=== PATIENT | female | born 1945 | race Caucasian/White ===

== ENCOUNTER 2017-01-28 09:05 | Emergency (ER) | payer MEDICARE, OTHER ==
--- NOTE | 2017-01-28 11:23 | CT ---
CT OF THE BRAIN WITHOUT CONTRAST: Date: 01/28/17 COMPARISON: None. HISTORY: Fall, hit head on foundation of her home. TECHNIQUE: Multiple contiguous axial images were obtained in a CT of the brain without contrast. FINDINGS: The brain is normal in morphology and attenuation without focal lesions or confluent areas of infarc tion. There is no evidence of hydrocephalus, intracranial hemorrhage, or extra-axial fluid collectio n. The calvarium and overlying soft tissues are unremarkable. The visualized paranasal sinuses and mast oid air cells are well aerated. IMPRESSION: No evidence of acute intracranial abnormality. POS: [facility]
== END 2017-01-28 11:10 | disposition home or self-care (01) ==
LOC: SCSER 09:05
DX: S00.93XA Contusion of unspecified part of head, initial encounter (principal); E03.9 Hypothyroidism, unspecified; G20 Parkinson's disease; Z79.899 Other long term (current) drug therapy; W18.09XA Striking against other object with subsequent fall, initial encounter
CPT/HCPCS: 70450

== ENCOUNTER 2017-02-06 16:35 | Outpatient (CLI) | payer MEDICARE, OTHER ==
--- NOTE | 2017-02-06 18:41 | RAD ---
RIGHT FOREARM TWO VIEWS: History: Patient fell one week ago, right forearm pain and injury. Comparison: None. FINDINGS: No fracture. No cortical irregularity. No periosteal reaction. IMPRESSION: No fracture. POS: [facility]
== END 2017-02-06 16:36 | disposition home or self-care (01) ==
LOC: SCSRAD 16:35
PROVIDERS: ATTEND Specialist
DX: M79.601 Pain in right arm (principal)

== ENCOUNTER 2017-03-29 13:51 | Emergency (ER) | payer MEDICARE ==
[2017-03-29 14:31] LABS: #Basophils 0.1 thou/uL (0.0-0.2); #Eosinphils 0.1 thou/uL (0.0-0.7); #Lymphocytes 2.4 thou/uL (1.20-3.40); #Monocytes 0.4 thou/uL (0.11-0.59); %Basophils 0.7 % (0.0-1.0); %Eosinophils 1.6 % (0.0-10.0); %Monocytes 5.5 % (0.0-10.0); Hematocrit 35.6 % (36.0-47.0); Mean Platelet Volume 7.5 fL (7.4-10.4); Red Blood Cell (RBC) Count 3.67 mill/uL (4.20-5.40)
[2017-03-29 14:46] LABS: ALT (SGPT) 8 U/L (8-55); AST (SGOT) 17 U/L (5-34); Alkaline Phosphatase 66 U/L (40-150); Anion Gap 14 mmol/L (10-20); BUN (Urea Nitrogen) 18 mg/dL (9.8-20.1); Bilirubin, Total 0.4 mg/dL (0.2-1.2); Calc. Creatinine Clearance 0 mL/min (70-130); Calcium 9.4 mg/dL (7.8-10.44); Carbon Dioxide 23 mmol/L (23-31); Chloride 107 mmol/L (98-107); Estimated GFR-MDRD 68; Globulin 2.7 g/dL (2.4-3.5); Protein, Total 6.7 g/dL (6.0-8.3)
--- NOTE | 2017-03-29 15:13 | RAD ---
SINGLE VIEW OF THE CHEST: Comparison: 09-01-14 History: Lower abdominal pain for 2-3 days. Cough. FINDINGS: Single view of the chest shows a normal sized cardiomediastinal silhouette. There is no evidence of c onsolidation, mass, or pleural effusion. The bones are unremarkable. IMPRESSION: No evidence of acute cardiopulmonary disease. POS: [facility]
--- NOTE | 2017-03-29 15:43 | CT ---
CT ABDOMEN AND PELVIS WITH IV CONTRAST: Date: 03-29-17 History: Left lower quadrant abdominal pain and productive cough. Abdominal pain radiates to the left flank. Comparison: 06-26-13 FINDINGS: Minimal bibasilar atelectasis is present. Vascular calcifications are again seen in the abdominal aorta and in the iliac arteries. Post cholecystectomy changes are again present. The spleen, pancreas, bilateral adrenal glands, kidneys, and urinary bladder demonstrate a normal CT appearance. There is mild nonspecific prominence of the right ureter without hydronephrosis. No urete ral calculus is visualized. Pessary device is seen within the vagina. There is calcification seen in the right aspect of the uter us which may represent a tiny calcified uterine fibroid. There is colonic diverticulosis without CT evidence of diverticulitis. The appendix is normal in caliber. There has been no interval change from the prior CT of the abdomen from 2013. IMPRESSION: 1. No acute findings are seen in the abdomen or pelvis. 2. Colonic diverticulosis. 3. Post cholecystectomy changes. 4. Tiny fat containing umbilical hernia. 5. Small duodenal diverticulum. POS: [facility]
[2017-03-29 16:07] LABS: Bilirubin Negative (Negative); Blood, Urine Negative (Negative); Glucose, Urine (Dipstick) Negative (Negative); Ketone, Urine Negative (Negative); Nitrite Negative (Negative); Protein, Urine (Dipstick) Negative (Neg-Trace); Urobilinogen 0.2 mg/dL (0.2-1.0)
[2017-03-29 16:10] LABS: Bacteria/HPF 1+ HPF (None Seen); RBC/HPF None Seen HPF (0-3)
== END 2017-03-29 16:43 | disposition home or self-care (01) ==
LOC: SCSER 13:51
DX: R10.32 Left lower quadrant pain (principal); G20 Parkinson's disease; E03.9 Hypothyroidism, unspecified; Z79.899 Other long term (current) drug therapy
CPT/HCPCS: 71010; 74177; 80053; 81003; 81015; 85025; 87077; 87086

== ENCOUNTER 2017-04-20 09:53 | Outpatient (CLI) | payer MEDICARE, OTHER ==
--- NOTE | 2017-04-25 09:26 | MMO ---
BILATERAL SCREENING MAMMOGRAMS: Date: 04/20/17 HISTORY: 71-year-old female patient presenting for screening mammography. COMPARISON: 04/07/16, 04/06/15, 04/04/14, and 04/03/13. This patient's mammogram was interpreted with the assistance of computer-aided detection. FINDINGS: Scattered fibroglandular densities are seen in each breast. There are stable benign-appearing calcifi cations again noted in each breast. No dominant mass or suspicious grouping of microcalcifications ar e seen in either breast. No new areas of architectural distortion are seen. IMPRESSION: BIRADS 2: Benign Finding(s) Routine annual mammographic screening is recommended. POS: [facility]
== END 2017-04-20 09:54 | disposition home or self-care (01) ==
LOC: SCSMAMMO 09:53
PROVIDERS: ATTEND Internal Medicine
DX: Z12.31 Encounter for screening mammogram for malignant neoplasm of breast (principal)
CPT/HCPCS: 77067

== ENCOUNTER 2017-05-01 15:58 | Outpatient (CLI) | payer MEDICARE, OTHER ==
--- NOTE | 2017-05-01 16:29 | RAD ---
LEFT HIP TWO VIEWS: History: Left hip pain. FINDINGS: There is mild joint space narrowing, osteophytosis, and subchondral sclerosis. Femoral head contour i s maintained. No acute fracture, dislocation, or aggressive osseous erosions. Degenerative changes of the sacroiliac joint are also apparent. Circular object projecting over the pubic symphysis may repr esent a vaginal support device. IMPRESSION: Mild osteoarthritic changes left hip. POS: [facility]
== END 2017-05-01 15:59 | disposition home or self-care (01) ==
LOC: SCSRAD 15:58
PROVIDERS: ATTEND Internal Medicine
DX: M25.552 Pain in left hip (principal); M16.12 Unilateral primary osteoarthritis, left hip

== ENCOUNTER 2017-11-30 11:28 | Inpatient (IN) | payer MEDICARE, OTHER ==
[2017-11-30 11:53] LABS: Red Blood Cell (RBC) Count 3.92 mill/uL (4.20-5.40); White Blood Cell (WBC) Count 8.8 thou/uL (4.8-10.8)
[2017-11-30 11:54] LABS: #Eosinphils 0.1 thou/uL (0.0-0.7); #Lymphocytes 2.4 thou/uL (1.20-3.40); #Monocytes 0.6 thou/uL (0.11-0.59); #Neutrophils 5.7 thou/uL (1.40-6.50); %Basophils 0.4 % (0.0-1.0); %Lymphocytes 27.2 % (21.0-51.0); %Monocytes 6.6 % (0.0-10.0); %Neutrophils 64.7 % (42.0-75.0); Mean Corpuscular HGB CONC 33.5 g/dL (32.0-36.0); Mean Corpuscular Hemoglobin 33.1 pg (27.0-31.0); Mean Corpuscular Volume 98.8 fL (78.0-98.0); Mean Platelet Volume 7.9 fL (7.4-10.4); Platelet Count 209 thou/uL (130-400); RBC Distribution Width 11.4 % (11.5-14.5)
[2017-11-30] MEDS ORDERED: Midazolam HCl 5 mg/ml Vial ONE (12:16)
[2017-11-30 12:24] LABS: CKMB 3.3 ng/mL (0-6.6); Troponin I 0.012 ng/mL (< 0.028)
[2017-11-30 12:29] LABS: ALT (SGPT) Less than 7 U/L (8-55); AST (SGOT) 17 U/L (5-34); Albumin 4.2 g/dL (3.4-4.8); Alkaline Phosphatase 81 U/L (40-150); Anion Gap 13 mmol/L (10-20); BUN (Urea Nitrogen) 25 mg/dL (9.8-20.1); Bilirubin, Total 0.7 mg/dL (0.2-1.2); CK (CPK) 176 U/L (29-168); Calc. Creatinine Clearance 0 mL/min (70-130); Calcium 9.8 mg/dL (7.8-10.44); Carbon Dioxide 24 mmol/L (23-31); Chloride 105 mmol/L (98-107); Estimated GFR-MDRD 32; Globulin 2.8 g/dL (2.4-3.5); Glucose 111 mg/dL (83-110); Potassium 4.3 mmol/L (3.5-5.1); Sodium 138 mmol/L (136-145)
--- NOTE | 2017-11-30 14:30 | RAD ---
CHEST ONE VIEW: History: Chest pain. Comparison: 03-29-17 FINDINGS: Cardiac silhouette is magnified by projection. Pulmonary vasculature unremarkable. Linear atelectasis right midlung. No lobar consolidation or evidence of pneumothorax. Defibrillator patch overlies the right chest. IMPRESSION: No active cardiopulmonary abnormalities are demonstrated. POS: [facility]
[2017-11-30] MEDS ORDERED: Acetaminophen 325 MG TAB PO PRN (14:42)
[2017-11-30] MEDS ORDERED: Bisacodyl 5 MG TAB PO PRN (14:42)
[2017-11-30] MEDS ORDERED: Acetaminophen 650 MG Suppository PR PRN (14:42)
--- NOTE | 2017-11-30 15:23 | HP ---
PRIMARY CARE PROVIDER: Virginia Carranza M.D. CHIEF COMPLAINT: Chest pain. HISTORY OF PRESENT ILLNESS: Ms. Ma is a pleasant 72-year-old lady who was seen at [facility] on 11/30/2017. She was sent to the emergency room from her reporting developer's [facility]. She has a history of supraventricular tachycardia. She had ablation in 08/2014. She was reportedly doing well until about 5 days ago. About 5 days ago, she started having high heart rate. At the [facility] time, she was not eating or drinking well. She contacted her reporting developer's office, Dr. Castañeda and w as seen at Cardiology office 2 days ago. She was given a prescription for digoxin 0.25 mg q.6 hours x4 doses, then 0.125 mg daily. She finished the 0.25 mg doses yesterday evening and started 0.125 mg dose today. She reportedly had nausea and shortness of breath. She was seen at the Cardiology offi ce today and electrocardiogram was done. She was sent to the emergency room because she was in supra ventricular tachycardia. Please note that at this point in time, patient herself is unable to provide any history, since she r eceived versed for cardioversion. REVIEW OF SYSTEMS: Could not be completed secondary to patient's lethargic status. PAST MEDICAL HISTORY: Parkinson's disease, osteoporosis, hypothyroidism, supraventricular tachycardi a. PAST SURGICAL HISTORY: Cholecystectomy, tonsillectomy, spinal surgery, intercostal nerve block, kyph oplasty, cardiac ablation. SOCIAL HISTORY: No history of tobacco use, alcohol use or recreational drug use. FAMILY HISTORY: Myocardial infarctions in her father and coronary artery bypass graft in her mother. CODE STATUS: I discussed her code status. She is FULL CODE. Her is the surrogate decision maker. ALLERGIES: SULFA. CURRENT MEDICATIONS: Carbidopa/levodopa 10/100 mg daily, Requip 1 mg 3 times a day, levothyroxine 10 0 mcg daily, Azilect 1 mg daily, Neurontin 300 mg 2 times a day, Zoloft 100 mg daily, lisinopril 5 mg daily, Vagifem gastrointestinal 25 mcg daily, Prolia 60 units subcutaneously twice yearly, Amitiza 8 mcg as needed, vitamin D3 2000 units 2 times a day, magnesium 100 mg daily, Coenzyme Q10 at 10 mg da george, digoxin 125 mcg daily. PHYSICAL EXAMINATION: GENERAL: On examination, Ms. Ma is sleepy, but arousable, not in acute distress. VITAL SIGNS: Blood pressure is 105/44, pulse 66, respiratory rate 18, and oxygen saturation 98% on r oom air. She is afebrile. EYES: No scleral icterus. No conjunctival pallor. ENT: Dry mucosal membranes, no oropharyngeal erythema or exudates. NECK: Supple, nontender, trachea is midline. RESPIRATORY: Accessory muscles of breathing are not active. Chest wall movements are symmetric bila terally. LUNGS: Clear to auscultation without wheeze, rhonchi or crepitations. CARDIOVASCULAR: S1 and S2 are heard, regular. Peripheral pulses palpable. No carotid bruit, no per icardial rub. ABDOMEN: Soft, nontender, bowel sounds heard, no hepatomegaly, no splenomegaly. NEUROLOGIC: Full neurologic exam not possible secondary to the patient's noncooperation. There is n o facial droop. Deep tendon reflexes are 2+. SKIN: No rashes or subcutaneous nodules. MUSCULOSKELETAL: The patient is moving all four extremities. LYMPHATIC: No cervical lymphadenopathy. PSYCHIATRIC: Normal mood, normal affect, unable to assess orientation to person, place or time. IMAGING DATA AND LABORATORY DATA: Ms. Ma's labs and investigations were reviewed. I reviewed h er electrocardiogram sent from her reporting developer's office showing supraventricular tachycardia, no ST changes to suggest acute coronary syndrome. I also reviewed electrocardiograms after cardioversion, showing normal sinus rhythm, no ST changes to suggest an acute coronary syndrome, i.e. also reviewed her chest x-ray, which does not show any pulmonary infiltrates. She has an unremarkable CBC, normal electrolytes, elevated blood urea nitrogen of 25, elevated creatinine of 1.58, unremarkable liver pro file, elevated creatinine kinase of 136 and elevated BNP of 205.9, Troponin I is normal. ASSESSMENT AND PLAN: Ms. Ma is a pleasant 72-year-old lady who was seen at [facility] on 11/30/2017. Her problem list includes: 1. Supraventricular tachycardia: She presented to the emergency room with supraventricular tachycar sylvain. She has been electrically cardioverted by emergency room physician. She is being admitted to [facility] for further management. She will be admitted to the [facility], given her low blood pressure i n the emergency room. Her family members report that her blood pressure is usually lower on baseline . We will consult Cardiology and Electrophysiology Services for help with management. 2. Dehydration: The patient is clinically dehydrated. We will provide intravenous fluids and obser ve. 3. Acute kidney injury: Likely secondary to dehydration. We will provide intravenous fluids and re check creatinine and electrolytes. 4. Parkinson's disease. We will continue home medications once clarified. 5. Hypothyroidism: Continue Synthroid. Check TSH level. 6. Hypertension: The patient is currently hypotensive. Hold antihypertensives until blood pressure improves. Many thanks for allowing me to participate in your patient's care. Please feel free to contact me wi th any questions or concerns. LEVEL OF RISK: High. LEVEL OF COMPLEXITY: High.
[2017-11-30] MEDS ORDERED: Lubiprostone 8 MCG CAP PO SCH (17:30)
[2017-11-30] MEDS ORDERED: DENOSUMAB SQ SCH (17:30)
[2017-11-30] MEDS: Sodium Chloride 0.9% 1,000 ML IV SCH (18:01)
[2017-11-30 18:22] VITALS: BMI 33.4
[2017-11-30] MEDS: Gabapentin 300 MG CAP PO SCH (20:26)
[2017-11-30] MEDS: rOPINIRole HCl 1 MG TAB PO SCH (20:26)
[2017-11-30] MEDS ORDERED: Prevnar 13-Val Conj/PF 0.5 ML SYRINGE IM ONE (21:00)
[2017-11-30] MEDS ORDERED: CARBIDOPA PO SCH (21:00)
[2017-11-30] MEDS ORDERED: LEVODOPA PO SCH (21:00)
--- NOTE | 2017-12-01 00:36 | CON ---
DATE OF CONSULTATION: 11/30/2017 REASON FOR CONSULTATION: SVT. PRIMARY MEDICAL LABORATORY TECHNICAL OFFICER: Ashlie Castañeda M.D. HISTORY OF PRESENT ILLNESS: Ms. Ma is a very pleasant 72-year-old white female, who comes to the hospital for SVT. She was actually seen in the office by Dr. Castañeda' Nurse Practitioner and she was found to be in SVT with hypotension , blood pressure in the 60s/40s, so she was transferred immediately to the ER where she received a single cardioversion, successfully converting her from SVT down to sinus rhythm. She did well. After that, she did have an episode of hypotension transiently and is back to normal now. She denies any chest pain, tightness, pressure. She has a history of SVT with AVNRT ablation [place] [address] Ma. PAST MEDICAL HISTORY: 1. Hypertension. 2. Hyperlipidemia. 3. Hypothyroidism. 4. Osteoarthritis. 5. Parkinson disease, on carbidopa/levodopa pump. 6. Stress fractures. PAST SURGICAL HISTORY: 1. Tonsillectomy. 2. Left cataract removal. 3. Cholecystectomy. OUTPATIENT MEDICATIONS: Include: 1. Carbidopa/levodopa pump. 2. Requip. 3. Levothyroxine 100 mcg a day. 4. Azilect 1 mg a day. 5. Neurontin 300 mg twice a day. 6. Zoloft 100 mg daily. 7. Lisinopril 5 mg a day. 8. Vagifem. 9. Prolia. 10. Amitiza. 11. Vitamin D3. 12. Magnesium 100 mg a day. 13. CoQ10. 14. Digoxin 125 mcg a day. ALLERGIES: No known drug allergies. SOCIAL HISTORY: Noncontributory. FAMILY HISTORY: Positive for coronary artery disease in brother and father. REVIEW OF SYSTEMS: A 12-point review of systems was done and is all negative unless stated in the history of present illness. She has got her movement disorder, which is followed by a neurologist in [place]. PHYSICAL EXAMINATION: VITAL SIGNS: Temperature 98.2, pulse 62, respiratory rate 18, satting 98% on 2 liters nasal cannula, blood pressure 128/60. GENERAL: Awake, alert, oriented x3, in no distress. HEENT: Normocephalic, atraumatic. NECK: Supple. LUNGS: Clear. CARDIOVASCULAR: S1, S2. No S3 or S4. ABDOMEN: Soft with positive bowel sounds. EXTREMITIES: No edema. SKIN: Warm and dry. LABORATORY DATA: Laboratory work was reviewed. CBC is unremarkable. Chemistry is unremarkable. BUN of 25, creatinine 1.58, GFR of 32. Her creatinine is a little bit under baseline, most likely related to hypotension. TSH was 5.3, BNP was 205, CK-MB and troponin are normal. ASSESSMENT: 1. Supraventricular tachycardia: Status post cardioversion, doing better now. 2. High TSH. We would recommend getting a free T3, free T4. PLAN: 1. Continue digoxin. No beta sesar given borderline low blood pressure. 2. We will get EP consultation and she may be interested in a repeat ablation. This will most likely happen as an outpatient. Thank you for letting us to participate in the care of your patient. We will follow. [facility]
--- NOTE | 2017-12-01 02:07 | CON ---
DATE OF CONSULTATION: 11/30/2017 CONSULTING PHYSICIAN: Paul Cintron MD REQUESTING PHYSICIAN: Gee Gurrola MD REASON FOR CONSULTATION: Acute kidney injury. IMPRESSION: Acute kidney injury. This is likely hemodynamically mediated in the context of poor elsi al perfusion due to cardiac arrhythmia, compounded by prerenal state and beware of intravascular depl etion. PLAN: 1. IV fluid resuscitation. 2. Cardiac stabilization. HISTORY OF PRESENT ILLNESS: History is that of a 72-year-old female patient who presented with chest pain. Patient does have history of supraventricular tachycardia. Patient did come over to the ER f rom her medical office assistant instructor office. On presentation, the patient was noted to have elevated creatinine, as a result, renal consultation has been requested. PAST MEDICAL HISTORY: Significant for Parkinson disease, osteoporosis, hypothyroidism, supraventricu lar tachycardia. REVIEW OF SYSTEMS: Highly limited given the clinical condition of this patient. SOCIAL HISTORY: No alcohol, no tobacco, no illicit drug use. FAMILY HISTORY: Significant for heart disease. PHYSICAL EXAMINATION: GENERAL: The patient is noted to be somewhat lethargic though arousable, noted with the following vi sharla signs. VITAL SIGNS: Respiratory rate of 18, blood pressure 104/55, afebrile. O2 sat 98%. HEENT: Unremarkable except with dry oral mucosa. NECK: Supple. No conjunctival injection or icterus. CARDIOVASCULAR SYSTEM: First and second heart sounds were heard. RESPIRATORY SYSTEM: Clear to auscultation. DIGESTIVE SYSTEM: Revealed a benign abdomen. EXTREMITIES: No peripheral edema. SKIN: No new gross rash. LYMPHATICS: No peripheral lymphadenopathy. SUMMARY: A 72-year-old female patient who presented here with chest pain noted with supraventricular tachycardia as well as a history of poor p.o. intake. Thank you for this consultation. We will follow with you.
[2017-12-01] MEDS: Sodium Chloride 0.9% 1,000 ML IV SCH (03:31)
[2017-12-01] MEDS ORDERED: Levothyroxine Sodium 100 MCG TAB PO SCH (06:00)
[2017-12-01 06:15] LABS: #Basophils 0.1 thou/uL (0.0-0.2); #Eosinphils 0.2 thou/uL (0.0-0.7); #Lymphocytes 2.5 thou/uL (1.20-3.40); #Monocytes 0.4 thou/uL (0.11-0.59); #Neutrophils 3.3 thou/uL (1.40-6.50); %Basophils 1.1 % (0.0-1.0); %Eosinophils 2.7 % (0.0-10.0); %Lymphocytes 38.7 % (21.0-51.0); %Monocytes 6.1 % (0.0-10.0); %Neutrophils 51.5 % (42.0-75.0); Hemoglobin 12.8 g/dL (12.0-16.0); Mean Corpuscular HGB CONC 34.3 g/dL (32.0-36.0); Mean Corpuscular Hemoglobin 34.2 pg (27.0-31.0); Mean Corpuscular Volume 99.6 fL (78.0-98.0); Mean Platelet Volume 7.8 fL (7.4-10.4); Platelet Count 196 thou/uL (130-400); RBC Distribution Width 11.5 % (11.5-14.5); Red Blood Cell (RBC) Count 3.73 mill/uL (4.20-5.40); White Blood Cell (WBC) Count 6.5 thou/uL (4.8-10.8)
[2017-12-01 06:18] LABS: Anion Gap 14 mmol/L (10-20); BUN (Urea Nitrogen) 23 mg/dL (9.8-20.1); Calc. Creatinine Clearance 56 mL/min (70-130); Calcium 10.2 mg/dL (7.8-10.44); Carbon Dioxide 23 mmol/L (23-31); Chloride 108 mmol/L (98-107); Estimated GFR-MDRD 49; Glucose 92 mg/dL (83-110); Potassium 4.7 mmol/L (3.5-5.1); Sodium 140 mmol/L (136-145)
[2017-12-01 07:33] VITALS: BP 172/65
[2017-12-01] MEDS: Gabapentin 300 MG CAP PO SCH (08:43)
[2017-12-01] MEDS: rOPINIRole HCl 1 MG TAB PO SCH (08:46)
[2017-12-01] MEDS ORDERED: Lisinopril 5 MG TAB PO SCH (09:00)
[2017-12-01] MEDS ORDERED: Ubidecarenone 50 MG CAP PO SCH (09:00)
[2017-12-01] MEDS ORDERED: Enoxaparin Sodium 40 MG/0.4 ML SYRINGE SC SCH (09:00)
[2017-12-01] MEDS ORDERED: MAGNESIUM AMINO ACID CHELATE PO SCH (09:00)
[2017-12-01] MEDS ORDERED: Digoxin 0.125 MG TAB PO SCH (09:00)
[2017-12-01] MEDS ORDERED: Naproxen 500 MG TAB PO PRN (09:23)
[2017-12-01 11:13] VITALS: TEMP 98
[2017-12-01 11:41] LABS: Free T4 (Free Thyroxine) 1.05 ng/dL (0.70-1.48)
--- NOTE | 2017-12-01 21:01 | DIS ---
DATE OF ADMISSION: 11/30/2017 DATE OF DISCHARGE: 12/01/2017 PRIMARY CARE PROVIDER: Virginia Carranza M.D. ADMITTING DIAGNOSES: 1. Supraventricular tachycardia. 2. Acute kidney injury. 3. Dehydration. LABORATORY DATA: Elevated TSH, but normal free T4 and normal free T3. CONDITION OF PATIENT ON THE DAY OF DISCHARGE: Stable. I assessed Ms. Ma on the day of discharg e. She denies any chest pain or shortness of breath. Vital signs are stable. S1 and S2 are heard, regular. Lungs are clear to auscultation bilaterally. DISCHARGE MEDICATIONS: No change was made to her preadmission home medications as dictated in my his tory and physical note dated 11/30/2017. HOSPITAL COURSE: Ms. Ma is a pleasant 72-year-old lady who was admitted to [facility] on 11/30/2017 for supraventricular tachycardia. Please refer to my history and physica l note dated 11/30/2017 for further details. She was seen by Cardiology and Nephrology Services. Sh e received intravenous fluids. She was monitored on telemetry, and IMCU unit. She continued to be i n sinus rhythm. Her blood pressure also improved. She is being discharged home in a stable conditio n. She is advised to follow up with her primary care provider as well as with project finance analyst. On the day of discharge, she has sodium 140, potassium 4.7, creatinine 1.09, blood urea nitrogen 23, TSH elevated at 5.36, but free T3 and free T4 normal at 2.33 and 1.05 respectively, white count 6,500 , hemoglobin 12.8, and platelet count 196,000. Many thanks for allowing me to participate in your patient's care. Please feel free to contact me wi th any questions or concerns. DISCHARGE DESTINATION: Home. TOTAL AMOUNT OF TIME SPENT COORDINATING THIS DISCHARGE: 31 minutes.
[2017-12-07] MEDS ORDERED: ESTRADIOL VAG SCH (09:00)
--- NOTE | 2017-12-09 11:21 | EKG ---
Test Reason : TACHYCARDIA Blood Pressure : / mmHG Vent. Rate : 124 BPM Atrial Rate : 110 BPM P-R Int : 000 ms QRS Dur : 062 ms QT Int : 312 ms P-R-T Axes : 000 -03 077 degrees QTc Int : 448 ms Accelerated Junctional rhythm Low voltage QRS No STEMI Abnormal ECG Confirmed by VALERIE NEWMAN DO ([id number]), science editor GALI SCHROEDER ([id number]) on 12/09/2017 11:21:22 AM Referred By: Confirmed By:VALERIE NEWMAN DO
== END 2017-12-01 12:35 | disposition home or self-care (01) | DRG 309 ==
LOC: ERS 11:28 → IMCU/EMU 16:38
PROVIDERS: ADMIT Internal Medicine; ATTEND Internal Medicine
DX: I47.1 Supraventricular tachycardia (principal); N17.9 Acute kidney failure, unspecified; G20 Parkinson's disease; M81.0 Age-related osteoporosis without current pathological fracture; E03.9 Hypothyroidism, unspecified; E86.0 Dehydration; I10 Essential (primary) hypertension; I95.9 Hypotension, unspecified; E78.5 Hyperlipidemia, unspecified; M19.90 Unspecified osteoarthritis, unspecified site; Z92.29 Personal history of other drug therapy
CPT/HCPCS: 36415; 71045; 80048; 80053; 80061; 82550; 82553; 83880; 84439; 84443; 84481; 84484; 85025; 93005; 96361; 96374; J1650; J2250

== ENCOUNTER 2018-01-02 11:32 | Day surgery (SDC) | payer MEDICARE ==
[2018-01-01 13:08] VITALS: BMI 32.2
[2018-01-02] MEDS ORDERED: Lidocaine 1% (PF) 30 ML VIAL ONE (12:27)
[2018-01-02] MEDS ORDERED: Heparin 10,000 UNITS/1 ML VIAL ONE (12:29)
[2018-01-02 13:01] LABS: PTT 29.1 SEC (22.9-36.1); Prothrombin Time 13.7 SEC (12.0-14.7)
[2018-01-02 13:06] LABS: #Basophils 0.1 thou/uL (0.0-0.2); #Eosinphils 0.1 thou/uL (0.0-0.7); #Lymphocytes 3.1 thou/uL (1.20-3.40); #Monocytes 0.5 thou/uL (0.11-0.59); #Neutrophils 4.3 thou/uL (1.40-6.50); %Basophils 0.7 % (0.0-1.0); %Eosinophils 1.5 % (0.0-10.0); %Lymphocytes 37.8 % (21.0-51.0); %Monocytes 6.5 % (0.0-10.0); %Neutrophils 53.5 % (42.0-75.0); Hemoglobin 13.7 g/dL (12.0-16.0); Mean Corpuscular HGB CONC 34.4 g/dL (32.0-36.0); Mean Corpuscular Hemoglobin 33.7 pg (27.0-31.0); Mean Corpuscular Volume 97.9 fL (78.0-98.0); Mean Platelet Volume 8.2 fL (7.4-10.4); Platelet Count 207 thou/uL (130-400); RBC Distribution Width 11.4 % (11.5-14.5); Red Blood Cell (RBC) Count 4.07 mill/uL (4.20-5.40); White Blood Cell (WBC) Count 8.1 thou/uL (4.8-10.8)
[2018-01-02 13:09] LABS: Anion Gap 13 mmol/L (10-20); BUN (Urea Nitrogen) 22 mg/dL (9.8-20.1); Calc. Creatinine Clearance 62 mL/min (70-130); Calcium 9.9 mg/dL (7.8-10.44); Carbon Dioxide 24 mmol/L (23-31); Chloride 105 mmol/L (98-107); Estimated GFR-MDRD 58; Glucose 97 mg/dL (83-110); Potassium 4.5 mmol/L (3.5-5.1); Sodium 137 mmol/L (136-145)
[2018-01-02] MEDS ORDERED: Propofol 500 MG/50 ML VIAL ONE (13:24)
[2018-01-02] MEDS ORDERED: Fentanyl 100 MCG/2 ML VIAL ONE ×2 (14:02→16:08)
[2018-01-02] MEDS ORDERED: PROPOFOL 200 MG/20 ML VIAL ONE (14:18)
[2018-01-02] MEDS ORDERED: PROPOFOL 0 ML ONE (14:28)
[2018-01-02] MEDS ORDERED: Isoproterenol 0.2 MG/1 ML AMP ONE (14:39)
[2018-01-02] MEDS ORDERED: PROPOFOL 40 ML ONE (15:07)
--- NOTE | 2018-01-03 09:44 | OP ---
DATE OF SERVICE: 01/02/2018 ELECTROPHYSIOLOGY STUDY AND RADIOFREQUENCY ABLATION REPORT REFERRING PHYSICIAN: Ashlie Castañeda M.D. Mrs. Ma is a 72-year-old female with prior history of Parkinson's, hypertension who presented with a prior SVT with slow pathway modification back in 2014, but now with recurrent SVT is noted. Here for a repeat EP study and radiofrequency ablation. PROCEDURE: The patient received propofol by Anesthesia specialist. After adequate level of sedation achieved, the left and right femoral veins were prepped, draped and anesthetized using subcutaneous lidocaine and a left femoral vein was accessed under ultrasound guidance and two short sheath was introduced. A octapolar catheter was advanced to the right atrium, right ventricular His bundle and CS position. Pacing, mapping and recording was performed in each location. With catheter manipulation, a narrow complex SVT were noted with a cycle length of 510 milliseconds. The tachycardia had a short VA timing of 100 milliseconds are documented. This tachycardia was easily inducible also with extra stimuli provocation. Ventricular overdrive pacing demonstrated ZAYNAB response. With double extrastimuli, we were able to demonstrate presence of slow pathway. Ventricular overdrive pacing did demonstrate central retrograde VA conduction. The following numerical findings were noted. Baseline cycle length 60 milliseconds sinus rhythm, HI 165, QRS 56, QT 390, AH 120, HV 58 milliseconds. The sinus node recovery time was 1171, corrected 310 milliseconds. AV Wenckebach cycle length 370 milliseconds, retrograde Wenckebach cycle length was 380 milliseconds. AV alphonse ERP was 600/380 milliseconds. Again, with 600/380/340 milliseconds. Access to my dual AV alphonse physiology was demonstrated and this sequence was induced tachycardia. Following that, through a right femoral venous access, a standard 4 mm ablation catheter was advanced to the right atrium. 3D map of the right atrium was obtained delineating the His bundle and CS position. Following that, the slow pathway was located and ablation was performed in the slow pathway with close attention to the avoidance of AV block. Total of 3 minutes of ablation delivered in this area. These ablation lesions did eliminate inducibility of AV alphonse reentry tachycardia. Following that isuprel was initiated. With isuprel, we were initially not able to re-induce tachycardia, but then with burst atrial pacing, catheter manipulation and other recurrence were noted and repeat ablation of slow pathway was performed. Eventually no recurrence of the arrhythmia is seen. CONCLUSION: 1. 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 2. Normal sinus alphonse and AV alphonse function pre and post-ablation. [facility]
--- NOTE | 2018-01-07 16:45 | EKG ---
Test Reason : PREOP Blood Pressure : / mmHG Vent. Rate : 071 BPM Atrial Rate : 071 BPM P-R Int : 160 ms QRS Dur : 078 ms QT Int : 374 ms P-R-T Axes : -04 000 056 degrees QTc Int : 406 ms Normal sinus rhythm Nonspecific T wave abnormality Abnormal ECG When compared with ECG of 30-NOV-2017 12:32, (Unconfirmed) No significant change was found Confirmed by PARVIZ LIAO (2) on 01/07/2018 4:44:57 PM Referred By: BRANDON Confirmed By:PARVIZ LIAO
--- NOTE | 2018-01-07 16:52 | EKG ---
Test Reason : Blood Pressure : / mmHG Vent. Rate : 072 BPM Atrial Rate : 072 BPM P-R Int : 140 ms QRS Dur : 084 ms QT Int : 404 ms P-R-T Axes : 018 020 054 degrees QTc Int : 442 ms Normal sinus rhythm Normal ECG When compared with ECG of 02-JAN-2018 12:44, (Unconfirmed) No significant change was found Confirmed by PARVIZ LIAO (2) on 01/07/2018 4:52:22 PM Referred By: BRANDON Confirmed By:PARVIZ LIAO
== END 2018-01-02 19:20 | disposition home or self-care (01) ==
LOC: CCL 11:32
PROVIDERS: ATTEND Internal Medicine Cardiovascular Disease
PROC: 4A023FZ Measurement of Cardiac Rhythm, Percutaneous Approach (ICD-10-PCS; principal; 2018-01-02)
PROC: 02583ZZ Destruction of Conduction Mechanism, Percutaneous Approach (ICD-10-PCS; 2018-01-02)
PROC: 02K83ZZ Map Conduction Mechanism, Percutaneous Approach (ICD-10-PCS; 2018-01-02)
DX: I47.1 Supraventricular tachycardia (principal); G20 Parkinson's disease; I10 Essential (primary) hypertension; Z79.899 Other long term (current) drug therapy; Z88.2 Allergy status to sulfonamides; Z91.013 Allergy to seafood
CPT/HCPCS: 76942; 80048; 85025; 85610; 85730; 93613; 93623; 93653; 96374; C1730 ×2; C1769; 93005; 93010; J1644; J2001; J2704; J3010

== ENCOUNTER 2018-04-23 07:47 | Outpatient (CLI) | payer MEDICARE ==
--- NOTE | 2018-04-23 12:44 | BD ---
BONE DENSITOMETRY: INDICATION: A 72-year-old female for postmenopausal osteoporosis screening. FINDINGS: Lumbar Spine: BMD (g/cm2) L1 1.076 T-Score: 0.8 L2 1.065 T-Score: 0.3 L3 0.979 T-Score: -1.0 L4 1.022 T-Score: -0.4 L1-L4 1.033 T-Score: -0.1 Femoral Neck: 0.699 T-Score: -1.3 Total Femur: 0.974 T-Score: 0.3 Impression: 1. Bone mineral density of the femoral neck indicates osteopenia. 2. Bone mineral density of the lumbar spine within normal range. POS: [facility]
== END 2018-04-23 07:48 | disposition home or self-care (01) ==
LOC: BICMAMMO 07:47
PROVIDERS: ATTEND Internal Medicine
DX: Z12.31 Encounter for screening mammogram for malignant neoplasm of breast (principal); M81.0 Age-related osteoporosis without current pathological fracture; M85.859 Other specified disorders of bone density and structure, unspecified thigh; R92.1 Mammographic calcification found on diagnostic imaging of breast; Z80.3 Family history of malignant neoplasm of breast
CPT/HCPCS: 77063; 77067; 77080

== ENCOUNTER 2019-08-27 14:07 | Outpatient (CLI) | payer MEDICARE ==
--- NOTE | 2019-08-27 15:38 | CT ---
EXAM: BRAIN CT WITHOUT IV CONTRAST: 08/27/19 HISTORY: Injury, fall, struck forehead on wall with swelling. COMPARISON: 01/28/17. FINDINGS: Left frontal scalp swelling/hematoma. No focal mass or midline shift. There is some atrophy and chron ic white matter ischemic change. No mass or hemorrhage. Stable appearance from prior study. IMPRESSION: Left frontal scalp swelling/hematoma. No intracranial mass or bleed or other acute process. POS: [facility]
== END 2019-08-27 14:08 | disposition home or self-care (01) ==
LOC: SCSCT 14:07
PROVIDERS: ATTEND Internal Medicine
DX: S09.90XA Unspecified injury of head, initial encounter (principal)
CPT/HCPCS: 70450

== ENCOUNTER 2020-12-01 16:24 | Outpatient (CLI) | payer MEDICARE | END 2020-12-01 16:25 | disposition home or self-care (01) | LOC: BICRAD 16:24 | PROVIDERS: ATTEND Physician Assistant | DX: R06.02 Shortness of breath (principal); R60.0 Localized edema | CPT/HCPCS: 71046 ==

== ENCOUNTER 2021-06-09 11:23 | Outpatient (CLI) | payer MEDICARE | END 2021-06-09 11:24 | disposition home or self-care (01) | LOC: BICRAD 11:23 | PROVIDERS: ATTEND Internal Medicine | DX: R07.81 Pleurodynia (principal); M54.6 Pain in thoracic spine; M54.2 Cervicalgia; M47.812 Spondylosis without myelopathy or radiculopathy, cervical region | CPT/HCPCS: 72040; 72072 ==

== ENCOUNTER 2021-10-20 08:50 | Observation (INO) | payer MEDICARE ==
[2021-10-20] MEDS ORDERED: Senokot S 8.6-50 MG TAB PO PRN (11:11)
[2021-10-20] MEDS ORDERED: Ondansetron ODT 4 MG TAB PO PRN (11:11)
[2021-10-20] MEDS ORDERED: Bisacodyl 5 MG TAB PO PRN (11:11)
[2021-10-20 11:47] LABS: #Basophils 0.1 thou/uL (0.0-0.2); #Lymphocytes 1.7 thou/uL (1.20-3.40); #Monocytes 0.2 thou/uL (0.11-0.59); #Neutrophils 6.7 thou/uL (1.40-6.50); %Basophils 0.6 % (0.0-1.0); %Eosinophils 0.1 % (0.0-10.0); %Lymphocytes 19.6 % (21.0-51.0); %Monocytes 2.4 % (0.0-10.0); %Neutrophils 77.3 % (42.0-75.0); Hemoglobin 14.5 g/dL (12.0-16.0); Mean Corpuscular HGB CONC 32.9 g/dL (32.0-36.0); Mean Corpuscular Hemoglobin 33.7 pg (27.0-31.0); Mean Platelet Volume 7.2 fL (7.4-10.4); Platelet Count 365 thou/uL (130-400); RBC Distribution Width 11.5 % (11.5-14.5); White Blood Cell (WBC) Count 8.7 thou/uL (4.8-10.8)
[2021-10-20 11:55] VITALS: BMI 30.2
[2021-10-20 11:57] LABS: ALT (SGPT) 58 U/L (8-55); AST (SGOT) 35 U/L (5-34); Albumin 4.6 g/dL (3.4-4.8); Alkaline Phosphatase 335 U/L (40-110); Anion Gap 16 mmol/L (10-20); BUN (Urea Nitrogen) 16 mg/dL (9.8-20.1); Bilirubin, Total 0.6 mg/dL (0.2-1.2); Calc. Creatinine Clearance 68 mL/min (70-130); Carbon Dioxide 22 mmol/L (23-31); Chloride 104 mmol/L (98-107); Estimated GFR 79; Globulin 3.8 g/dL (2.4-3.5); Glucose 102 mg/dL (83-110); Potassium 4.1 mmol/L (3.5-5.1); Protein, Total 8.4 g/dL (5.8-8.1); Sodium 138 mmol/L (136-145)
[2021-10-20 13:03] LABS: SARS-CoV-2 NAA Rapid Test Not Detected (NotDetected)
[2021-10-20] MEDS ORDERED: Nitroglycerin 0.4 MG TAB (25 Tab Bottle) SL PRN (13:21)
[2021-10-20] MEDS ORDERED: HYDROcodone/Acetaminophen 10/325 mg Tablet PO PRN (13:21)
[2021-10-20] MEDS ORDERED: CARBIDOPA PER TUBE SCH (13:45)
[2021-10-20] MEDS ORDERED: LEVODOPA PER TUBE SCH (13:45)
[2021-10-20] MEDS: HYDROcodone/Acetaminophen 10/325 mg Tablet PO PRN ×2 (14:04→16:41)
[2021-10-20] MEDS: Gabapentin 400 MG CAP PO SCH ×2 (14:04→20:40)
[2021-10-20] MEDS: rOPINIRole HCl 1 MG TAB PO SCH ×2 (14:08→20:56)
[2021-10-20] MEDS ORDERED: Morphine 4 MG/ML VIAL ONE (16:14)
[2021-10-20] MEDS ORDERED: Morphine 2 MG/ML VIAL SLOW IVP PRN (16:27)
[2021-10-20] MEDS: Morphine 4 MG/ML VIAL SLOW IVP PRN ×2 (16:41→20:39)
[2021-10-21 05:54] LABS: ALT (SGPT) 9 U/L (8-55); AST (SGOT) 51 U/L (5-34); Albumin 3.7 g/dL (3.4-4.8); Alkaline Phosphatase 293 U/L (40-110); Anion Gap 15 mmol/L (10-20); BUN (Urea Nitrogen) 20 mg/dL (9.8-20.1); Bilirubin, Total 0.4 mg/dL (0.2-1.2); Calc. Creatinine Clearance 65 mL/min (70-130); Calcium 9.3 mg/dL (7.8-10.44); Carbon Dioxide 24 mmol/L (23-31); Chloride 105 mmol/L (98-107); Estimated GFR 76; Glucose 86 mg/dL (83-110); Potassium 4.4 mmol/L (3.5-5.1); Protein, Total 6.7 g/dL (5.8-8.1); Sodium 140 mmol/L (136-145)
[2021-10-21] MEDS ORDERED: Levothyroxine Sodium 112 MCG TAB PO SCH (06:00)
[2021-10-21] MEDS: HYDROcodone/Acetaminophen 10/325 mg Tablet PO PRN ×2 (06:02→09:52)
[2021-10-21] MEDS ORDERED: Cholecalciferol 1,000 UNITS (25 MCG) TAB PO SCH (09:00)
[2021-10-21] MEDS ORDERED: Floranex 1 GM Packet PO SCH (09:00)
[2021-10-21] MEDS ORDERED: Oxybutynin ER 5 MG TAB PO SCH (09:00)
[2021-10-21] MEDS ORDERED: Magnesium Oxide 250 MG TAB PO SCH (09:00)
[2021-10-21] MEDS ORDERED: Multivit, Therapeutic 1 TAB PO SCH (09:00)
[2021-10-21] MEDS ORDERED: Furosemide 20 MG TAB PO SCH (09:00)
[2021-10-21] MEDS ORDERED: Potassium Chloride 10 MEQ TAB PO SCH (09:00)
[2021-10-21] MEDS ORDERED: Calcium Carbonate 500 MG TAB PO SCH (09:00)
[2021-10-21] MEDS: Gabapentin 400 MG CAP PO SCH ×2 (09:11→15:31)
[2021-10-21] MEDS: rOPINIRole HCl 1 MG TAB PO SCH ×2 (09:14→15:31)
[2021-10-21] MEDS ORDERED: Sodium Chloride 0.9% 1,000 ML IV SCH (11:00)
[2021-10-21 12:25] VITALS: BP 100/64; TEMP 98.3
== END 2021-10-21 16:00 | disposition home or self-care (01) ==
LOC: SJJU 11:08 → INTOOBSV 11:08
PROVIDERS: ADMIT Specialist; ATTEND Specialist
DX: M80.08XA Age-related osteoporosis with current pathological fracture, vertebra(e), initial encounter for fracture (principal); M80.0AXA Age-related osteoporosis with current pathological fracture, other site, initial encounter for fracture; S76.211A Strain of adductor muscle, fascia and tendon of right thigh, initial encounter; G20 Parkinson's disease; E78.5 Hyperlipidemia, unspecified; E03.9 Hypothyroidism, unspecified; I10 Essential (primary) hypertension; I25.10 Atherosclerotic heart disease of native coronary artery without angina pectoris; M51.35 Other intervertebral disc degeneration, thoracolumbar region; M47.815 Spondylosis without myelopathy or radiculopathy, thoracolumbar region; M48.05 Spinal stenosis, thoracolumbar region; M51.36 Other intervertebral disc degeneration, lumbar region; M47.816 Spondylosis without myelopathy or radiculopathy, lumbar region; M48.061 Spinal stenosis, lumbar region without neurogenic claudication; M47.817 Spondylosis without myelopathy or radiculopathy, lumbosacral region; N81.10 Cystocele, unspecified; M79.89 Other specified soft tissue disorders; R74.01 Elevation of levels of liver transaminase levels; Z79.890 Hormone replacement therapy; Z79.899 Other long term (current) drug therapy; Z88.1 Allergy status to other antibiotic agents; Z88.2 Allergy status to sulfonamides; Z88.8 Allergy status to other drugs, medicaments and biological substances; Z91.013 Allergy to seafood; Z98.890 Other specified postprocedural states; Z20.822 Contact with and (suspected) exposure to COVID-19; W19.XXXA Unspecified fall, initial encounter
CPT/HCPCS: 72148; 72195; 80053 ×2; 85025; 93970; U0002; 36415; 51798; 96374; G0378; J2270; J3010; J7050

== ENCOUNTER 2021-10-28 16:27 | Inpatient (IN) | payer MEDICARE ==
[2021-10-28] MEDS ORDERED: Senokot S 8.6-50 MG TAB PO PRN (16:51)
[2021-10-28] MEDS ORDERED: Calcium Carbonate 500 MG ChewTAB PO PRN (16:51)
[2021-10-28] MEDS ORDERED: HYDROcodone/Acetaminophen 7.5/325 mg Tablet PO PRN (16:51)
[2021-10-28] MEDS ORDERED: Ondansetron ODT 4 MG TAB PO PRN (16:51)
[2021-10-28] MEDS ORDERED: Bisacodyl 5 MG TAB PO PRN (16:51)
[2021-10-28] MEDS ORDERED: Ondansetron PF 4 MG/2 ML Vial IVP PRN (16:51)
[2021-10-28] MEDS ORDERED: Bisacodyl 10 MG SUPP PR PRN (16:51)
[2021-10-28] MEDS ORDERED: Morphine 2 MG/ML VIAL SLOW IVP PRN (16:58)
[2021-10-28 17:11] LABS: #Basophils 0.1 thou/uL (0.0-0.2); #Eosinphils 0.2 thou/uL (0.0-0.7); #Lymphocytes 2.8 thou/uL (1.20-3.40); #Monocytes 0.4 thou/uL (0.11-0.59); #Neutrophils 5.3 thou/uL (1.40-6.50); %Basophils 0.9 % (0.0-1.0); %Eosinophils 2.4 % (0.0-10.0); %Lymphocytes 31.9 % (21.0-51.0); %Monocytes 4.6 % (0.0-10.0); %Neutrophils 60.2 % (42.0-75.0); Hemoglobin 12.4 g/dL (12.0-16.0); Mean Corpuscular HGB CONC 32.4 g/dL (32.0-36.0); Mean Corpuscular Hemoglobin 33.8 pg (27.0-31.0); Mean Platelet Volume 7.4 fL (7.4-10.4); Platelet Count 274 thou/uL (130-400); RBC Distribution Width 11.5 % (11.5-14.5); Red Blood Cell (RBC) Count 3.68 mill/uL (4.20-5.40); White Blood Cell (WBC) Count 8.7 thou/uL (4.8-10.8)
[2021-10-28] MEDS ORDERED: Naloxone HCl 0.4 mg/ml Vial IV PRN (17:15)
[2021-10-28 17:34] LABS: ALT (SGPT) 10 U/L (8-55); AST (SGOT) 53 U/L (5-34); Albumin 4.3 g/dL (3.4-4.8); Alkaline Phosphatase 317 U/L (40-110); Anion Gap 14 mmol/L (10-20); BUN (Urea Nitrogen) 33 mg/dL (9.8-20.1); Bilirubin, Total 0.5 mg/dL (0.2-1.2); Calc. Creatinine Clearance 0 mL/min (70-130); Calcium 9.6 mg/dL (7.8-10.44); Carbon Dioxide 27 mmol/L (23-31); Chloride 100 mmol/L (98-107); Estimated GFR 46; Globulin 3.1 g/dL (2.4-3.5); Glucose 103 mg/dL (83-110); Potassium 4.2 mmol/L (3.5-5.1); Protein, Total 7.4 g/dL (5.8-8.1); Sodium 137 mmol/L (136-145)
[2021-10-28] MEDS: Morphine 4 MG/ML VIAL SLOW IVP PRN ×2 (17:56→22:32)
[2021-10-28] MEDS: Sodium Chloride 0.9% 1,000 ML IV SCH (17:56)
[2021-10-28] MEDS ORDERED: Enoxaparin Sodium 40 MG/0.4 ML SYRINGE SC SCH (18:30)
[2021-10-28 19:16] VITALS: BMI 29.9
[2021-10-28] MEDS: HYDROcodone/Acetaminophen 7.5/325 mg Tablet PO PRN (20:24)
[2021-10-29] MEDS: HYDROcodone/Acetaminophen 7.5/325 mg Tablet PO PRN ×3 (00:50→21:42)
[2021-10-29] MEDS: Morphine 4 MG/ML VIAL SLOW IVP PRN ×2 (02:36→06:13)
[2021-10-29] MEDS ORDERED: Diazepam 5 MG TAB PO SCH (06:45)
[2021-10-29] MEDS: Sodium Chloride 0.9% 1,000 ML IV SCH ×2 (08:51→21:37)
[2021-10-29] MEDS ORDERED: Diazepam 5 MG TAB PO PRN (12:04)
[2021-10-29] MEDS ORDERED: Iopamidol-370 76% 500 ML 1 ML ONE (13:45)
[2021-10-29] MEDS ORDERED: clonazePAM 0.5 MG TAB PO SCH (16:30)
[2021-10-29] MEDS: Enoxaparin Sodium 40 MG/0.4 ML SYRINGE SC SCH (21:37)
[2021-10-30] MEDS: Morphine 4 MG/ML VIAL SLOW IVP PRN ×3 (01:12→09:59)
[2021-10-30] MEDS: HYDROcodone/Acetaminophen 7.5/325 mg Tablet PO PRN ×2 (02:27→07:11)
[2021-10-30] MEDS: Sodium Chloride 0.9% 1,000 ML IV SCH ×2 (04:15→17:29)
[2021-10-30 05:15] LABS: #Eosinphils 0.2 thou/uL (0.0-0.7); #Lymphocytes 2.8 thou/uL (1.20-3.40); #Monocytes 0.5 thou/uL (0.11-0.59); #Neutrophils 5.3 thou/uL (1.40-6.50); %Basophils 0.5 % (0.0-1.0); %Eosinophils 1.8 % (0.0-10.0); %Lymphocytes 31.7 % (21.0-51.0); %Monocytes 6.2 % (0.0-10.0); %Neutrophils 59.9 % (42.0-75.0); Mean Corpuscular HGB CONC 32.6 g/dL (32.0-36.0); Mean Corpuscular Hemoglobin 33.2 pg (27.0-31.0); Mean Platelet Volume 7.7 fL (7.4-10.4); Platelet Count 262 thou/uL (130-400); RBC Distribution Width 11.5 % (11.5-14.5); Red Blood Cell (RBC) Count 3.92 mill/uL (4.20-5.40); White Blood Cell (WBC) Count 8.8 thou/uL (4.8-10.8)
[2021-10-30 05:34] LABS: Anion Gap 16 mmol/L (10-20); BUN (Urea Nitrogen) 12 mg/dL (9.8-20.1); Calc. Creatinine Clearance 75 mL/min (70-130); Calcium 9.2 mg/dL (7.8-10.44); Carbon Dioxide 23 mmol/L (23-31); Chloride 103 mmol/L (98-107); Estimated GFR 89; Glucose 107 mg/dL (83-110); Potassium 3.7 mmol/L (3.5-5.1); Sodium 138 mmol/L (136-145)
[2021-10-30 05:38] LABS: ALT (SGPT) 10 U/L (8-55); AST (SGOT) 46 U/L (5-34); Albumin 4.1 g/dL (3.4-4.8); Alkaline Phosphatase 290 U/L (40-110); Anion Gap 17 mmol/L (10-20); BUN (Urea Nitrogen) 13 mg/dL (9.8-20.1); Bilirubin, Direct 0.4 mg/dL (0.1-0.3); Bilirubin, Total 0.8 mg/dL (0.2-1.2); Calc. Creatinine Clearance 74 mL/min (70-130); Calcium 9.2 mg/dL (7.8-10.44); Carbon Dioxide 21 mmol/L (23-31); Chloride 103 mmol/L (98-107); Estimated GFR 89; Globulin 2.8 g/dL (2.4-3.5); Glucose 106 mg/dL (83-110); Potassium 3.7 mmol/L (3.5-5.1); Protein, Total 6.9 g/dL (5.8-8.1); Sodium 137 mmol/L (136-145)
[2021-10-30 05:54] LABS: HBSAg Index 0.25 S/CO (0-0.99); Hep A IgM AB Non-Reactive (NonReactive); Hep A IgM S/CO 0.18 S/CO (0-0.79); Hep B Surf Ag Non-Reactive S/CO (NonReactive); Hep C IgG Ab Non-Reactive (NonReactive); Hep C Index 0.11 S/CO (0-0.79); Hepatitis B Core IgM Abs Non-Reactive (NonReactive)
[2021-10-30] MEDS ORDERED: methylPREDNISolone Sod Succ/PF 125 MG/2 ML VIAL IVP SCH (09:00)
[2021-10-30] MEDS ORDERED: clonazePAM 0.5 MG TAB PO SCH (09:00)
[2021-10-30] MEDS: clonazePAM 0.5 MG TAB PO SCH ×2 (09:44→20:40)
[2021-10-30] MEDS ORDERED: Levothyroxine Sodium 112 MCG TAB PO SCH (10:00)
[2021-10-30 10:42] LABS: Iron 83 ug/dL (50-170); Iron Binding Capacity, Total 293 mcg/dL (265-497)
[2021-10-30] MEDS: Enoxaparin Sodium 40 MG/0.4 ML SYRINGE SC SCH (20:40)
[2021-10-30] MEDS: Melatonin 3 MG TAB PO SCH (20:41)
[2021-10-31] MEDS: HYDROcodone/Acetaminophen 7.5/325 mg Tablet PO PRN ×2 (01:48→06:38)
[2021-10-31] MEDS: Morphine 4 MG/ML VIAL SLOW IVP PRN ×4 (02:31→16:51)
[2021-10-31] MEDS: Levothyroxine Sodium 112 MCG TAB PO SCH (05:31)
[2021-10-31] MEDS: Sodium Chloride 0.9% 1,000 ML IV SCH ×2 (05:31→18:52)
[2021-10-31] MEDS ORDERED: Ketorolac Tromethamine 30 MG/ML VIAL IVP SCH (09:45)
[2021-10-31] MEDS: Folic Acid 1 MG TAB PO SCH (10:02)
[2021-10-31] MEDS: Oxybutynin ER 5 MG TAB PO SCH (10:02)
[2021-10-31] MEDS: clonazePAM 0.5 MG TAB PO SCH ×2 (10:02→21:42)
[2021-10-31] MEDS ORDERED: LEVODOPA PER TUBE SCH (11:00)
[2021-10-31] MEDS ORDERED: CARBIDOPA PER TUBE SCH (11:00)
[2021-10-31] MEDS: methylPREDNISolone 4 mg Tablet PO SCH ×3 (13:36→21:46)
[2021-10-31] MEDS: Ketorolac Tromethamine 10 MG TAB PO SCH ×2 (14:42→21:42)
[2021-10-31] MEDS ORDERED: Diazepam 10 MG/2 ML SYRINGE IVP SCH (18:15)
[2021-10-31] MEDS: Melatonin 3 MG TAB PO SCH (21:42)
[2021-10-31] MEDS: Enoxaparin Sodium 40 MG/0.4 ML SYRINGE SC SCH (21:42)
[2021-11-01] MEDS: Ketorolac Tromethamine 10 MG TAB PO SCH ×3 (05:30→22:24)
[2021-11-01] MEDS: Levothyroxine Sodium 112 MCG TAB PO SCH (05:31)
[2021-11-01] MEDS: Morphine 4 MG/ML VIAL SLOW IVP PRN ×4 (05:34→19:31)
[2021-11-01] MEDS: clonazePAM 0.5 MG TAB PO SCH ×2 (08:53→21:13)
[2021-11-01] MEDS: Oxybutynin ER 5 MG TAB PO SCH (08:53)
[2021-11-01] MEDS: methylPREDNISolone 4 mg Tablet PO SCH ×3 (08:53→18:21)
[2021-11-01] MEDS: Folic Acid 1 MG TAB PO SCH (08:54)
[2021-11-01] MEDS: HYDROcodone/Acetaminophen 7.5/325 mg Tablet PO PRN ×3 (08:54→23:53)
[2021-11-01] MEDS: Sodium Chloride 0.9% 1,000 ML IV SCH ×2 (09:17→23:52)
[2021-11-01] MEDS: hydrALAZINE 20 MG/ML VIAL SLOW IVP PRN (09:17)
[2021-11-01] MEDS: Diclofenac 1% 100 GM GEL TP SCH ×2 (13:49→22:27)
[2021-11-01] MEDS: tiZANidine HCl 4 MG TAB PO SCH ×2 (14:05→21:12)
[2021-11-01] MEDS ORDERED: methylPREDNISolone 4 mg Tablet PO SCH (21:00)
[2021-11-01] MEDS: Melatonin 3 MG TAB PO SCH (21:10)
[2021-11-01] MEDS: Enoxaparin Sodium 40 MG/0.4 ML SYRINGE SC SCH (21:13)
[2021-11-01] MEDS ORDERED: Diazepam 10 MG/2 ML SYRINGE IVP SCH (22:00)
[2021-11-02] MEDS: HYDROcodone/Acetaminophen 7.5/325 mg Tablet PO PRN ×3 (04:59→20:13)
[2021-11-02 05:03] LABS: #Lymphocytes 1.5 thou/uL (1.20-3.40); #Monocytes 0.3 thou/uL (0.11-0.59); #Neutrophils 7.4 thou/uL (1.40-6.50); %Basophils 0.1 % (0.0-1.0); %Eosinophils 0.1 % (0.0-10.0); %Monocytes 3.4 % (0.0-10.0); %Neutrophils 80.4 % (42.0-75.0); Hemoglobin 13.9 g/dL (12.0-16.0); Mean Corpuscular HGB CONC 31.6 g/dL (32.0-36.0); Mean Corpuscular Hemoglobin 33.1 pg (27.0-31.0); Mean Platelet Volume 8.1 fL (7.4-10.4); Platelet Count 229 thou/uL (130-400); RBC Distribution Width 11.6 % (11.5-14.5); Red Blood Cell (RBC) Count 4.21 mill/uL (4.20-5.40); White Blood Cell (WBC) Count 9.2 thou/uL (4.8-10.8)
[2021-11-02 05:15] LABS: ALT (SGPT) 7 U/L (8-55); AST (SGOT) 40 U/L (5-34); Albumin 4.2 g/dL (3.4-4.8); Alkaline Phosphatase 247 U/L (40-110); Anion Gap 16 mmol/L (10-20); BUN (Urea Nitrogen) 13 mg/dL (9.8-20.1); Bilirubin, Total 0.8 mg/dL (0.2-1.2); Calc. Creatinine Clearance 75 mL/min (70-130); Calcium 9.1 mg/dL (7.8-10.44); Carbon Dioxide 22 mmol/L (23-31); Chloride 102 mmol/L (98-107); Estimated GFR 89; Globulin 3.2 g/dL (2.4-3.5); Glucose 106 mg/dL (83-110); Magnesium 1.6 mg/dL (1.6-2.6); Potassium 3.3 mmol/L (3.5-5.1); Protein, Total 7.4 g/dL (5.8-8.1); Sodium 137 mmol/L (136-145)
[2021-11-02] MEDS: Levothyroxine Sodium 112 MCG TAB PO SCH (06:12)
[2021-11-02] MEDS: Ketorolac Tromethamine 10 MG TAB PO SCH (06:12)
[2021-11-02] MEDS: Diclofenac 1% 100 GM GEL TP SCH ×3 (06:20→21:23)
[2021-11-02] MEDS ORDERED: methylPREDNISolone 4 mg Tablet PO SCH (08:00)
[2021-11-02] MEDS: Folic Acid 1 MG TAB PO SCH (08:32)
[2021-11-02] MEDS: Morphine 4 MG/ML VIAL SLOW IVP PRN (08:32)
[2021-11-02] MEDS: Lidocaine 5% Patch TD SCH (08:32)
[2021-11-02] MEDS: Oxybutynin ER 5 MG TAB PO SCH (08:32)
[2021-11-02] MEDS: clonazePAM 0.5 MG TAB PO SCH ×2 (08:33→21:28)
[2021-11-02] MEDS: tiZANidine HCl 4 MG TAB PO SCH ×3 (10:06→21:23)
[2021-11-02] MEDS ORDERED: Fentanyl 100 MCG/2 ML VIAL ONE (10:57)
[2021-11-02] MEDS ORDERED: Ropivacaine 2% HCl/PF (20 MG/10 ML VIAL) ONE (11:42)
[2021-11-02] MEDS ORDERED: Lidocaine 1.5% w/Epi 1:200K 30 ML VIAL (Epid Use) ONE (11:42)
[2021-11-02] MEDS: fentaNYL Citrate/PF 500 MCG, Bupivacaine 0.75% 10 ML in Sodium Chloride 0.9% 80 ML EPIDURAL SCH (12:53)
[2021-11-02] MEDS: cefTRIAXone\\ROCEPHIN 1 GM in Sodium Chloride 0.9% 100 ML IVPB SCH (13:56)
[2021-11-02 13:59] LABS: Bacteria/HPF 3+ HPF (None Seen); Bilirubin Negative (Negative); Blood, Urine 1+ (Negative); Clarity Turbid (Clear); Glucose, Urine (Dipstick) Normal (Negative); Ketone, Urine Trace mg/dL (Negative); Leukocyte 500 Leu/uL (Negative); Nitrite Negative (Negative); Protein, Urine (Dipstick) 10 mg/dL (Neg-Trace); Specific Gravity, Urine 1.013 (1.002-1.036); Squamous Epithelial None Seen HPF (0-3); Urobilinogen Normal mg/dL (Less than 2); WBC/HPF Greater than 50 HPF (0-3)
[2021-11-02 14:02] LABS: Urine Culture Reflex Yes Yes
[2021-11-02 14:13] LABS: Hematocrit 36.8 % (34.0-46.6); RBC Folate Test Component 1367 ng/mL (>498)
[2021-11-02] MEDS ORDERED: Phenazopyridine HCl 100 MG TAB PO PRN (15:01)
[2021-11-02] MEDS ORDERED: Potassium Chloride 20 MEQ TAB PO SCH (16:30)
[2021-11-02] MEDS: Melatonin 3 MG TAB PO SCH (21:28)
[2021-11-02] MEDS: Enoxaparin Sodium 40 MG/0.4 ML SYRINGE SC SCH (21:28)
[2021-11-03] MEDS: Transdermal Patch Removal TOP SCH ×2 (00:31→20:14)
[2021-11-03] MEDS: HYDROcodone/Acetaminophen 7.5/325 mg Tablet PO PRN ×5 (00:51→22:48)
[2021-11-03] MEDS: fentaNYL Citrate/PF 500 MCG, Bupivacaine 0.75% 10 ML in Sodium Chloride 0.9% 80 ML EPIDURAL SCH (05:48)
[2021-11-03] MEDS: Diclofenac 1% 100 GM GEL TP SCH ×3 (06:08→20:15)
[2021-11-03] MEDS: Levothyroxine Sodium 112 MCG TAB PO SCH (06:08)
[2021-11-03] MEDS ORDERED: methylPREDNISolone 4 mg Tablet PO SCH (08:00)
[2021-11-03] MEDS: Oxybutynin ER 5 MG TAB PO SCH (09:14)
[2021-11-03] MEDS: Folic Acid 1 MG TAB PO SCH (09:14)
[2021-11-03] MEDS: Lidocaine 5% Patch TD SCH (09:14)
[2021-11-03] MEDS: clonazePAM 0.5 MG TAB PO SCH ×2 (09:44→20:14)
[2021-11-03] MEDS: tiZANidine HCl 4 MG TAB PO SCH ×2 (09:44→16:02)
[2021-11-03] MEDS: cefTRIAXone\\ROCEPHIN 1 GM in Sodium Chloride 0.9% 100 ML IVPB SCH (12:02)
[2021-11-03] MEDS: Melatonin 3 MG TAB PO SCH (20:14)
[2021-11-03] MEDS: Enoxaparin Sodium 40 MG/0.4 ML SYRINGE SC SCH (20:14)
[2021-11-04 04:55] LABS: #Basophils 0.1 thou/uL (0.0-0.2); #Eosinphils 0.1 thou/uL (0.0-0.7); #Lymphocytes 2.2 thou/uL (1.20-3.40); #Monocytes 0.4 thou/uL (0.11-0.59); #Neutrophils 3.9 thou/uL (1.40-6.50); %Basophils 0.8 % (0.0-1.0); %Lymphocytes 32.8 % (21.0-51.0); %Monocytes 6.5 % (0.0-10.0); %Neutrophils 57.9 % (42.0-75.0); Hemoglobin 12.3 g/dL (12.0-16.0); Mean Corpuscular HGB CONC 32.6 g/dL (32.0-36.0); Mean Corpuscular Hemoglobin 33.4 pg (27.0-31.0); Mean Platelet Volume 7.6 fL (7.4-10.4); Platelet Count 183 thou/uL (130-400); RBC Distribution Width 11.8 % (11.5-14.5); Red Blood Cell (RBC) Count 3.67 mill/uL (4.20-5.40); White Blood Cell (WBC) Count 6.7 thou/uL (4.8-10.8)
[2021-11-04 05:20] LABS: ALT (SGPT) Less than 7 U/L (8-55); AST (SGOT) 36 U/L (5-34); Albumin 3.7 g/dL (3.4-4.8); Alkaline Phosphatase 178 U/L (40-110); Anion Gap 15 mmol/L (10-20); BUN (Urea Nitrogen) 20 mg/dL (9.8-20.1); Bilirubin, Total 0.6 mg/dL (0.2-1.2); Calc. Creatinine Clearance 74 mL/min (70-130); Carbon Dioxide 21 mmol/L (23-31); Chloride 105 mmol/L (98-107); Estimated GFR 89; Globulin 2.6 g/dL (2.4-3.5); Glucose 83 mg/dL (83-110); Potassium 3.3 mmol/L (3.5-5.1); Protein, Total 6.3 g/dL (5.8-8.1); Sodium 138 mmol/L (136-145)
[2021-11-04] MEDS: Levothyroxine Sodium 112 MCG TAB PO SCH (06:11)
[2021-11-04] MEDS: Diclofenac 1% 100 GM GEL TP SCH ×3 (06:11→21:33)
[2021-11-04] MEDS: HYDROcodone/Acetaminophen 7.5/325 mg Tablet PO PRN ×2 (07:53→22:06)
[2021-11-04] MEDS ORDERED: methylPREDNISolone 4 mg Tablet PO SCH (08:00)
[2021-11-04] MEDS: Oxybutynin ER 5 MG TAB PO SCH (09:13)
[2021-11-04] MEDS: Lidocaine 5% Patch TD SCH (09:13)
[2021-11-04] MEDS: Folic Acid 1 MG TAB PO SCH (09:13)
[2021-11-04] MEDS: cefTRIAXone\\ROCEPHIN 1 GM in Sodium Chloride 0.9% 100 ML IVPB SCH (12:10)
[2021-11-04] MEDS: Potassium Chloride 20 MEQ TAB PO SCH (18:50)
[2021-11-04] MEDS: Enoxaparin Sodium 40 MG/0.4 ML SYRINGE SC SCH (21:32)
[2021-11-04] MEDS: Melatonin 3 MG TAB PO SCH (21:32)
[2021-11-04] MEDS: Transdermal Patch Removal TOP SCH (21:33)
[2021-11-04] MEDS: Morphine 4 MG/ML VIAL SLOW IVP PRN (23:41)
[2021-11-05] MEDS: Morphine 4 MG/ML VIAL SLOW IVP PRN (03:44)
[2021-11-05] MEDS: Levothyroxine Sodium 112 MCG TAB PO SCH (05:18)
[2021-11-05] MEDS: Diclofenac 1% 100 GM GEL TP SCH ×3 (05:18→21:20)
[2021-11-05] MEDS: fentaNYL Citrate/PF 500 MCG, Bupivacaine 0.75% 10 ML in Sodium Chloride 0.9% 80 ML EPIDURAL SCH ×2 (06:31→18:13)
[2021-11-05] MEDS: HYDROcodone/Acetaminophen 7.5/325 mg Tablet PO PRN ×3 (07:15→23:42)
[2021-11-05 07:30] LABS: #Eosinphils 0.2 thou/uL (0.0-0.7); #Lymphocytes 2.1 thou/uL (1.20-3.40); #Monocytes 0.4 thou/uL (0.11-0.59); #Neutrophils 4.8 thou/uL (1.40-6.50); %Basophils 0.2 % (0.0-1.0); %Eosinophils 2.6 % (0.0-10.0); %Lymphocytes 28.2 % (21.0-51.0); %Monocytes 5.2 % (0.0-10.0); %Neutrophils 63.8 % (42.0-75.0); Mean Corpuscular HGB CONC 32.2 g/dL (32.0-36.0); Mean Corpuscular Hemoglobin 33.4 pg (27.0-31.0); Mean Platelet Volume 8.1 fL (7.4-10.4); Platelet Count 220 thou/uL (130-400); RBC Distribution Width 11.8 % (11.5-14.5); White Blood Cell (WBC) Count 7.6 thou/uL (4.8-10.8)
[2021-11-05] MEDS ORDERED: methylPREDNISolone 4 mg Tablet PO SCH (08:00)
[2021-11-05 08:16] LABS: ALT (SGPT) Less than 7 U/L (8-55); AST (SGOT) 40 U/L (5-34); Albumin 3.8 g/dL (3.4-4.8); Alkaline Phosphatase 183 U/L (40-110); Anion Gap 17 mmol/L (10-20); BUN (Urea Nitrogen) 19 mg/dL (9.8-20.1); Bilirubin, Total 0.6 mg/dL (0.2-1.2); Calc. Creatinine Clearance 78 mL/min (70-130); Calcium 9.2 mg/dL (7.8-10.44); Carbon Dioxide 24 mmol/L (23-31); Chloride 103 mmol/L (98-107); Estimated GFR 90; Globulin 2.8 g/dL (2.4-3.5); Glucose 92 mg/dL (83-110); Potassium 3.5 mmol/L (3.5-5.1); Protein, Total 6.6 g/dL (5.8-8.1); Sodium 140 mmol/L (136-145)
[2021-11-05] MEDS: Potassium Chloride 20 MEQ TAB PO SCH ×2 (08:33→16:08)
[2021-11-05] MEDS: Folic Acid 1 MG TAB PO SCH (08:34)
[2021-11-05] MEDS: Oxybutynin ER 5 MG TAB PO SCH (08:34)
[2021-11-05] MEDS: Lidocaine 5% Patch TD SCH (08:36)
[2021-11-05] MEDS: cefTRIAXone\\ROCEPHIN 1 GM in Sodium Chloride 0.9% 100 ML IVPB SCH (11:53)
[2021-11-05] MEDS: Enoxaparin Sodium 40 MG/0.4 ML SYRINGE SC SCH (21:14)
[2021-11-05] MEDS: Melatonin 3 MG TAB PO SCH (21:15)
[2021-11-05] MEDS: Transdermal Patch Removal TOP SCH (21:27)
[2021-11-06] MEDS: HYDROcodone/Acetaminophen 7.5/325 mg Tablet PO PRN ×3 (04:56→15:11)
[2021-11-06 05:38] LABS: #Eosinphils 0.2 thou/uL (0.0-0.7); #Lymphocytes 2.3 thou/uL (1.20-3.40); #Monocytes 0.4 thou/uL (0.11-0.59); #Neutrophils 4.8 thou/uL (1.40-6.50); %Basophils 0.4 % (0.0-1.0); %Eosinophils 3.2 % (0.0-10.0); %Lymphocytes 29.7 % (21.0-51.0); %Neutrophils 61.7 % (42.0-75.0); Hemoglobin 12.9 g/dL (12.0-16.0); Mean Corpuscular HGB CONC 31.9 g/dL (32.0-36.0); Mean Platelet Volume 7.8 fL (7.4-10.4); Platelet Count 222 thou/uL (130-400); RBC Distribution Width 11.9 % (11.5-14.5); Red Blood Cell (RBC) Count 3.91 mill/uL (4.20-5.40); White Blood Cell (WBC) Count 7.7 thou/uL (4.8-10.8)
[2021-11-06 06:01] LABS: ALT (SGPT) Less than 7 U/L (8-55); AST (SGOT) 31 U/L (5-34); Albumin 3.9 g/dL (3.4-4.8); Alkaline Phosphatase 170 U/L (40-110); Anion Gap 18 mmol/L (10-20); BUN (Urea Nitrogen) 16 mg/dL (9.8-20.1); Bilirubin, Total 0.6 mg/dL (0.2-1.2); Calc. Creatinine Clearance 82 mL/min (70-130); Calcium 9.5 mg/dL (7.8-10.44); Carbon Dioxide 21 mmol/L (23-31); Chloride 103 mmol/L (98-107); Estimated GFR 91; Glucose 113 mg/dL (83-110); Potassium 4.2 mmol/L (3.5-5.1); Protein, Total 6.9 g/dL (5.8-8.1); Sodium 138 mmol/L (136-145)
[2021-11-06] MEDS: Diclofenac 1% 100 GM GEL TP SCH ×3 (06:05→21:46)
[2021-11-06] MEDS: Levothyroxine Sodium 112 MCG TAB PO SCH (06:06)
[2021-11-06] MEDS: fentaNYL Citrate/PF 500 MCG, Bupivacaine 0.75% 10 ML in Sodium Chloride 0.9% 80 ML EPIDURAL SCH ×2 (06:11→19:08)
[2021-11-06] MEDS: hydrALAZINE 20 MG/ML VIAL SLOW IVP PRN (06:44)
[2021-11-06] MEDS: Morphine 4 MG/ML VIAL SLOW IVP PRN ×2 (07:57→17:44)
[2021-11-06] MEDS: Oxybutynin ER 5 MG TAB PO SCH (10:47)
[2021-11-06] MEDS: Folic Acid 1 MG TAB PO SCH (10:49)
[2021-11-06] MEDS: Potassium Chloride 20 MEQ TAB PO SCH ×2 (10:49→17:42)
[2021-11-06] MEDS: Lidocaine 5% Patch TD SCH (10:51)
[2021-11-06] MEDS: cefTRIAXone\\ROCEPHIN 1 GM in Sodium Chloride 0.9% 100 ML IVPB SCH (10:57)
[2021-11-06] MEDS: Melatonin 3 MG TAB PO SCH (20:27)
[2021-11-06] MEDS: Enoxaparin Sodium 40 MG/0.4 ML SYRINGE SC SCH (20:27)
[2021-11-06] MEDS: clonazePAM 0.5 MG TAB PO SCH (20:28)
[2021-11-06] MEDS: Transdermal Patch Removal TOP SCH (21:46)
[2021-11-07] MEDS: HYDROcodone/Acetaminophen 7.5/325 mg Tablet PO PRN ×5 (00:29→20:27)
[2021-11-07] MEDS: hydrALAZINE 20 MG/ML VIAL SLOW IVP PRN (03:59)
[2021-11-07 05:39] LABS: #Basophils 0.1 thou/uL (0.0-0.2); #Eosinphils 0.3 thou/uL (0.0-0.7); #Monocytes 0.6 thou/uL (0.11-0.59); #Neutrophils 5.6 thou/uL (1.40-6.50); %Basophils 0.5 % (0.0-1.0); %Monocytes 6.4 % (0.0-10.0); %Neutrophils 59.2 % (42.0-75.0); Mean Corpuscular HGB CONC 32.5 g/dL (32.0-36.0); Mean Corpuscular Hemoglobin 33.8 pg (27.0-31.0); Platelet Count 246 thou/uL (130-400); RBC Distribution Width 12.3 % (11.5-14.5); Red Blood Cell (RBC) Count 4.14 mill/uL (4.20-5.40); White Blood Cell (WBC) Count 9.5 thou/uL (4.8-10.8)
[2021-11-07 06:01] LABS: ALT (SGPT) 9 U/L (8-55); AST (SGOT) 26 U/L (5-34); Albumin 4.2 g/dL (3.4-4.8); Alkaline Phosphatase 171 U/L (40-110); Anion Gap 16 mmol/L (10-20); BUN (Urea Nitrogen) 18 mg/dL (9.8-20.1); Bilirubin, Total 0.5 mg/dL (0.2-1.2); Calc. Creatinine Clearance 72 mL/min (70-130); Calcium 9.8 mg/dL (7.8-10.44); Carbon Dioxide 22 mmol/L (23-31); Chloride 105 mmol/L (98-107); Estimated GFR 86; Globulin 3.1 g/dL (2.4-3.5); Glucose 123 mg/dL (83-110); Potassium 4.4 mmol/L (3.5-5.1); Protein, Total 7.3 g/dL (5.8-8.1); Sodium 139 mmol/L (136-145)
[2021-11-07] MEDS: Diclofenac 1% 100 GM GEL TP SCH ×3 (06:16→20:30)
[2021-11-07] MEDS: Levothyroxine Sodium 112 MCG TAB PO SCH (06:16)
[2021-11-07] MEDS: Morphine 4 MG/ML VIAL SLOW IVP PRN (06:30)
[2021-11-07] MEDS: fentaNYL Citrate/PF 500 MCG, Bupivacaine 0.75% 10 ML in Sodium Chloride 0.9% 80 ML EPIDURAL SCH ×2 (07:17→18:22)
[2021-11-07] MEDS: Oxybutynin ER 5 MG TAB PO SCH (08:12)
[2021-11-07] MEDS: Lidocaine 5% Patch TD SCH (08:13)
[2021-11-07] MEDS: Folic Acid 1 MG TAB PO SCH (08:13)
[2021-11-07] MEDS: Potassium Chloride 20 MEQ TAB PO SCH ×2 (08:13→16:53)
[2021-11-07] MEDS: cefTRIAXone\\ROCEPHIN 1 GM in Sodium Chloride 0.9% 100 ML IVPB SCH (11:27)
[2021-11-07] MEDS: Transdermal Patch Removal TOP SCH (20:21)
[2021-11-07] MEDS: Melatonin 3 MG TAB PO SCH (20:22)
[2021-11-07] MEDS: clonazePAM 0.5 MG TAB PO SCH (20:22)
[2021-11-07] MEDS: Enoxaparin Sodium 40 MG/0.4 ML SYRINGE SC SCH (20:24)
[2021-11-08] MEDS: HYDROcodone/Acetaminophen 7.5/325 mg Tablet PO PRN ×4 (02:03→21:43)
[2021-11-08 05:43] LABS: #Basophils 0.1 thou/uL (0.0-0.2); #Eosinphils 0.3 thou/uL (0.0-0.7); #Lymphocytes 2.8 thou/uL (1.20-3.40); #Monocytes 0.5 thou/uL (0.11-0.59); #Neutrophils 4.2 thou/uL (1.40-6.50); %Eosinophils 3.6 % (0.0-10.0); %Lymphocytes 35.4 % (21.0-51.0); %Monocytes 6.9 % (0.0-10.0); %Neutrophils 53.2 % (42.0-75.0); Hemoglobin 13.7 g/dL (12.0-16.0); Mean Corpuscular HGB CONC 32.2 g/dL (32.0-36.0); Mean Corpuscular Hemoglobin 33.9 pg (27.0-31.0); Platelet Count 227 thou/uL (130-400); RBC Distribution Width 12.4 % (11.5-14.5); Red Blood Cell (RBC) Count 4.04 mill/uL (4.20-5.40); White Blood Cell (WBC) Count 7.8 thou/uL (4.8-10.8)
[2021-11-08 05:49] LABS: ALT (SGPT) 7 U/L (8-55); AST (SGOT) 29 U/L (5-34); Albumin 4.1 g/dL (3.4-4.8); Alkaline Phosphatase 151 U/L (40-110); Anion Gap 16 mmol/L (10-20); BUN (Urea Nitrogen) 17 mg/dL (9.8-20.1); Bilirubin, Total 0.5 mg/dL (0.2-1.2); Calc. Creatinine Clearance 78 mL/min (70-130); Calcium 9.6 mg/dL (7.8-10.44); Carbon Dioxide 21 mmol/L (23-31); Chloride 102 mmol/L (98-107); Estimated GFR 90; Glucose 100 mg/dL (83-110); Potassium 4.6 mmol/L (3.5-5.1); Protein, Total 7.1 g/dL (5.8-8.1); Sodium 134 mmol/L (136-145)
[2021-11-08] MEDS: fentaNYL Citrate/PF 500 MCG, Bupivacaine 0.75% 10 ML in Sodium Chloride 0.9% 80 ML EPIDURAL SCH ×2 (06:22→19:13)
[2021-11-08] MEDS: Diclofenac 1% 100 GM GEL TP SCH ×3 (06:42→21:42)
[2021-11-08] MEDS: Levothyroxine Sodium 112 MCG TAB PO SCH (06:43)
[2021-11-08] MEDS ORDERED: Naloxone HCl 0.4 mg/ml Vial IV PRN (08:00)
[2021-11-08] MEDS ORDERED: HYDROcodone/Acetaminophen 7.5/325 mg Tablet PO PRN (08:01)
[2021-11-08] MEDS: Morphine 4 MG/ML VIAL SLOW IVP PRN (08:09)
[2021-11-08] MEDS: Potassium Chloride 20 MEQ TAB PO SCH ×2 (08:14→17:03)
[2021-11-08] MEDS: Oxybutynin ER 5 MG TAB PO SCH (08:14)
[2021-11-08] MEDS: Folic Acid 1 MG TAB PO SCH (08:14)
[2021-11-08] MEDS: Lidocaine 5% Patch TD SCH (08:15)
[2021-11-08] MEDS: cefTRIAXone\\ROCEPHIN 1 GM in Sodium Chloride 0.9% 100 ML IVPB SCH (13:34)
[2021-11-08] MEDS: Morphine 2 MG/ML VIAL SLOW IVP PRN (16:02)
[2021-11-08] MEDS: Melatonin 3 MG TAB PO SCH (21:41)
[2021-11-08] MEDS: Enoxaparin Sodium 40 MG/0.4 ML SYRINGE SC SCH (21:42)
[2021-11-08] MEDS: clonazePAM 0.5 MG TAB PO SCH (21:42)
[2021-11-08] MEDS: Transdermal Patch Removal TOP SCH (22:08)
[2021-11-09 05:24] LABS: #Basophils 0.1 thou/uL (0.0-0.2); #Eosinphils 0.2 thou/uL (0.0-0.7); #Lymphocytes 2.1 thou/uL (1.20-3.40); #Monocytes 0.5 thou/uL (0.11-0.59); #Neutrophils 5.2 thou/uL (1.40-6.50); %Basophils 0.7 % (0.0-1.0); %Eosinophils 2.6 % (0.0-10.0); %Lymphocytes 25.6 % (21.0-51.0); %Monocytes 6.5 % (0.0-10.0); %Neutrophils 64.7 % (42.0-75.0); Hemoglobin 14.1 g/dL (12.0-16.0); Mean Corpuscular HGB CONC 32.7 g/dL (32.0-36.0); Mean Corpuscular Hemoglobin 34.2 pg (27.0-31.0); Mean Platelet Volume 7.8 fL (7.4-10.4); Platelet Count 226 thou/uL (130-400); RBC Distribution Width 12.4 % (11.5-14.5); Red Blood Cell (RBC) Count 4.14 mill/uL (4.20-5.40); White Blood Cell (WBC) Count 8.1 thou/uL (4.8-10.8)
[2021-11-09 05:48] LABS: ALT (SGPT) 7 U/L (8-55); AST (SGOT) 30 U/L (5-34); Albumin 4.1 g/dL (3.4-4.8); Alkaline Phosphatase 149 U/L (40-110); Anion Gap 17 mmol/L (10-20); BUN (Urea Nitrogen) 20 mg/dL (9.8-20.1); Bilirubin, Total 0.5 mg/dL (0.2-1.2); Calc. Creatinine Clearance 75 mL/min (70-130); Calcium 9.7 mg/dL (7.8-10.44); Carbon Dioxide 22 mmol/L (23-31); Chloride 104 mmol/L (98-107); Estimated GFR 89; Globulin 3.1 g/dL (2.4-3.5); Glucose 103 mg/dL (83-110); Potassium 4.5 mmol/L (3.5-5.1); Protein, Total 7.2 g/dL (5.8-8.1); Sodium 138 mmol/L (136-145)
[2021-11-09] MEDS: Levothyroxine Sodium 112 MCG TAB PO SCH (05:51)
[2021-11-09] MEDS: Diclofenac 1% 100 GM GEL TP SCH ×3 (05:51→21:03)
[2021-11-09] MEDS: Morphine 4 MG/ML VIAL SLOW IVP PRN ×3 (05:52→23:58)
[2021-11-09] MEDS: HYDROcodone/Acetaminophen 7.5/325 mg Tablet PO PRN ×3 (07:15→16:37)
[2021-11-09] MEDS: Potassium Chloride 20 MEQ TAB PO SCH ×2 (09:21→16:17)
[2021-11-09] MEDS: Folic Acid 1 MG TAB PO SCH (09:49)
[2021-11-09] MEDS: Lidocaine 5% Patch TD SCH (09:49)
[2021-11-09] MEDS: Oxybutynin ER 5 MG TAB PO SCH (09:49)
[2021-11-09] MEDS: Morphine 2 MG/ML VIAL SLOW IVP PRN (10:19)
[2021-11-09] MEDS: cefTRIAXone\\ROCEPHIN 1 GM in Sodium Chloride 0.9% 100 ML IVPB SCH (11:59)
[2021-11-09] MEDS: fentaNYL Citrate/PF 500 MCG, Bupivacaine 0.75% 10 ML in Sodium Chloride 0.9% 80 ML EPIDURAL SCH (12:00)
[2021-11-09] MEDS ORDERED: HYDROcodone/Acetaminophen 10/325 mg Tablet PO PRN (17:08)
[2021-11-09] MEDS: HYDROcodone/Acetaminophen 10/325 mg Tablet PO PRN (20:39)
[2021-11-09] MEDS: Enoxaparin Sodium 40 MG/0.4 ML SYRINGE SC SCH (20:39)
[2021-11-09] MEDS: clonazePAM 0.5 MG TAB PO SCH (20:42)
[2021-11-09] MEDS: Melatonin 3 MG TAB PO SCH (20:42)
[2021-11-09] MEDS: Transdermal Patch Removal TOP SCH (23:04)
[2021-11-10] MEDS: HYDROcodone/Acetaminophen 10/325 mg Tablet PO PRN ×3 (04:00→16:52)
[2021-11-10 04:57] LABS: #Eosinphils 0.2 thou/uL (0.0-0.7); #Lymphocytes 2.5 thou/uL (1.20-3.40); #Monocytes 0.4 thou/uL (0.11-0.59); #Neutrophils 3.8 thou/uL (1.40-6.50); %Basophils 0.5 % (0.0-1.0); %Lymphocytes 35.7 % (21.0-51.0); %Monocytes 6.1 % (0.0-10.0); %Neutrophils 54.7 % (42.0-75.0); Hemoglobin 13.1 g/dL (12.0-16.0); Mean Corpuscular HGB CONC 31.7 g/dL (32.0-36.0); Mean Corpuscular Hemoglobin 32.7 pg (27.0-31.0); Platelet Count 231 thou/uL (130-400); RBC Distribution Width 12.6 % (11.5-14.5); Red Blood Cell (RBC) Count 3.99 mill/uL (4.20-5.40); White Blood Cell (WBC) Count 6.9 thou/uL (4.8-10.8)
[2021-11-10 05:19] LABS: ALT (SGPT) Less than 7 U/L (8-55); AST (SGOT) 26 U/L (5-34); Albumin 3.8 g/dL (3.4-4.8); Alkaline Phosphatase 126 U/L (40-110); Anion Gap 16 mmol/L (10-20); BUN (Urea Nitrogen) 25 mg/dL (9.8-20.1); Bilirubin, Total 0.5 mg/dL (0.2-1.2); Calc. Creatinine Clearance 70 mL/min (70-130); Calcium 9.2 mg/dL (7.8-10.44); Carbon Dioxide 21 mmol/L (23-31); Chloride 104 mmol/L (98-107); Estimated GFR 83; Globulin 2.7 g/dL (2.4-3.5); Glucose 110 mg/dL (83-110); Protein, Total 6.5 g/dL (5.8-8.1); Sodium 137 mmol/L (136-145)
[2021-11-10] MEDS: Morphine 4 MG/ML VIAL SLOW IVP PRN ×3 (06:14→18:39)
[2021-11-10] MEDS: Levothyroxine Sodium 112 MCG TAB PO SCH (06:15)
[2021-11-10] MEDS: Diclofenac 1% 100 GM GEL TP SCH ×3 (06:15→21:20)
[2021-11-10] MEDS: Potassium Chloride 20 MEQ TAB PO SCH ×2 (08:22→17:05)
[2021-11-10] MEDS: Folic Acid 1 MG TAB PO SCH (08:40)
[2021-11-10] MEDS: Oxybutynin ER 5 MG TAB PO SCH (08:41)
[2021-11-10] MEDS: Lidocaine 5% Patch TD SCH (08:41)
[2021-11-10] MEDS: cefTRIAXone\\ROCEPHIN 1 GM in Sodium Chloride 0.9% 100 ML IVPB SCH (11:40)
[2021-11-10] MEDS: Melatonin 3 MG TAB PO SCH (21:18)
[2021-11-10] MEDS: clonazePAM 0.5 MG TAB PO SCH (21:18)
[2021-11-10] MEDS: Enoxaparin Sodium 40 MG/0.4 ML SYRINGE SC SCH (21:19)
[2021-11-11] MEDS: Transdermal Patch Removal TOP SCH ×2 (00:54→21:15)
[2021-11-11] MEDS: HYDROcodone/Acetaminophen 10/325 mg Tablet PER TUBE SCH (04:52)
[2021-11-11] MEDS: Levothyroxine Sodium 112 MCG TAB PO SCH (05:05)
[2021-11-11] MEDS: Diclofenac 1% 100 GM GEL TP SCH ×3 (05:06→21:14)
[2021-11-11] MEDS: Lidocaine 5% Patch TD SCH (08:27)
[2021-11-11] MEDS: Potassium Chloride 20 MEQ TAB PO SCH ×2 (08:27→17:34)
[2021-11-11] MEDS: Oxybutynin ER 5 MG TAB PO SCH (08:28)
[2021-11-11] MEDS: Folic Acid 1 MG TAB PO SCH (08:28)
[2021-11-11] MEDS: Morphine 4 MG/ML VIAL SLOW IVP PRN ×2 (12:39→17:38)
[2021-11-11] MEDS: cefTRIAXone\\ROCEPHIN 1 GM in Sodium Chloride 0.9% 100 ML IVPB SCH (12:40)
[2021-11-11] MEDS: HYDROcodone/Acetaminophen 10/325 mg Tablet PO PRN (15:55)
[2021-11-11] MEDS: Melatonin 3 MG TAB PO SCH (21:15)
[2021-11-11] MEDS: Enoxaparin Sodium 40 MG/0.4 ML SYRINGE SC SCH (21:15)
[2021-11-11] MEDS: clonazePAM 0.5 MG TAB PO SCH (21:15)
[2021-11-12] MEDS: Morphine 4 MG/ML VIAL SLOW IVP PRN ×2 (04:19→10:17)
[2021-11-12] MEDS: HYDROcodone/Acetaminophen 10/325 mg Tablet PER TUBE SCH (05:44)
[2021-11-12] MEDS: Levothyroxine Sodium 112 MCG TAB PO SCH (05:45)
[2021-11-12] MEDS: Diclofenac 1% 100 GM GEL TP SCH ×3 (05:45→22:06)
[2021-11-12] MEDS: Potassium Chloride 20 MEQ TAB PO SCH ×2 (08:28→17:09)
[2021-11-12] MEDS: Lidocaine 5% Patch TD SCH (08:42)
[2021-11-12] MEDS: Oxybutynin ER 5 MG TAB PO SCH (08:43)
[2021-11-12] MEDS: Folic Acid 1 MG TAB PO SCH (08:43)
[2021-11-12] MEDS: HYDROcodone/Acetaminophen 10/325 mg Tablet PO PRN (08:44)
[2021-11-12] MEDS: cefTRIAXone\\ROCEPHIN 1 GM in Sodium Chloride 0.9% 100 ML IVPB SCH (11:52)
[2021-11-12] MEDS: HYDROcodone/Acetaminophen 7.5/325 mg Tablet PO SCH ×2 (14:30→21:53)
[2021-11-12] MEDS: clonazePAM 0.5 MG TAB PO SCH (21:52)
[2021-11-12] MEDS: Melatonin 3 MG TAB PO SCH (21:52)
[2021-11-12] MEDS: Enoxaparin Sodium 40 MG/0.4 ML SYRINGE SC SCH (21:53)
[2021-11-12] MEDS: Transdermal Patch Removal TOP SCH (21:58)
[2021-11-13] MEDS: HYDROcodone/Acetaminophen 10/325 mg Tablet PER TUBE SCH ×2 (05:42→05:49)
[2021-11-13] MEDS: Diclofenac 1% 100 GM GEL TP SCH ×3 (05:46→21:36)
[2021-11-13] MEDS: Levothyroxine Sodium 112 MCG TAB PO SCH (05:51)
[2021-11-13] MEDS: HYDROcodone/Acetaminophen 7.5/325 mg Tablet PO SCH ×3 (09:20→21:35)
[2021-11-13] MEDS: Oxybutynin ER 5 MG TAB PO SCH (09:22)
[2021-11-13] MEDS: Folic Acid 1 MG TAB PO SCH (09:22)
[2021-11-13] MEDS: Potassium Chloride 20 MEQ TAB PO SCH ×2 (09:22→17:57)
[2021-11-13] MEDS: Lidocaine 5% Patch TD SCH (09:22)
[2021-11-13 11:05] LABS: Anion Gap 11 mmol/L (10-20); BUN (Urea Nitrogen) 18 mg/dL (9.8-20.1); Calc. Creatinine Clearance 77 mL/min (70-130); Calcium 9.2 mg/dL (7.8-10.44); Carbon Dioxide 27 mmol/L (23-31); Chloride 102 mmol/L (98-107); Estimated GFR 90; Glucose 132 mg/dL (83-110); Potassium 4.1 mmol/L (3.5-5.1); Sodium 136 mmol/L (136-145)
[2021-11-13] MEDS: clonazePAM 0.5 MG TAB PO SCH (21:33)
[2021-11-13] MEDS: Melatonin 3 MG TAB PO SCH (21:34)
[2021-11-13] MEDS: Enoxaparin Sodium 40 MG/0.4 ML SYRINGE SC SCH (21:36)
[2021-11-13] MEDS: Transdermal Patch Removal TOP SCH (21:40)
[2021-11-14] MEDS: Levothyroxine Sodium 112 MCG TAB PO SCH (04:46)
[2021-11-14] MEDS: HYDROcodone/Acetaminophen 10/325 mg Tablet PER TUBE SCH (04:46)
[2021-11-14] MEDS: Diclofenac 1% 100 GM GEL TP SCH ×3 (04:47→21:06)
[2021-11-14 06:12] LABS: Anion Gap 16 mmol/L (10-20); BUN (Urea Nitrogen) 16 mg/dL (9.8-20.1); Calc. Creatinine Clearance 72 mL/min (70-130); Calcium 9.6 mg/dL (7.8-10.44); Carbon Dioxide 22 mmol/L (23-31); Chloride 105 mmol/L (98-107); Estimated GFR 86; Glucose 121 mg/dL (83-110); Potassium 4.1 mmol/L (3.5-5.1); Sodium 139 mmol/L (136-145)
[2021-11-14] MEDS: Morphine 4 MG/ML VIAL SLOW IVP PRN (07:18)
[2021-11-14] MEDS: Oxybutynin ER 5 MG TAB PO SCH (09:07)
[2021-11-14] MEDS: Potassium Chloride 20 MEQ TAB PO SCH ×2 (09:07→17:28)
[2021-11-14] MEDS: Lidocaine 5% Patch TD SCH (09:07)
[2021-11-14] MEDS: HYDROcodone/Acetaminophen 7.5/325 mg Tablet PO SCH ×3 (09:07→21:05)
[2021-11-14] MEDS: Folic Acid 1 MG TAB PO SCH (09:07)
[2021-11-14] MEDS: Melatonin 3 MG TAB PO SCH (21:05)
[2021-11-14] MEDS: clonazePAM 0.5 MG TAB PO SCH (21:05)
[2021-11-14] MEDS: Enoxaparin Sodium 40 MG/0.4 ML SYRINGE SC SCH (21:06)
[2021-11-14] MEDS: Transdermal Patch Removal TOP SCH (21:06)
[2021-11-15] MEDS: HYDROcodone/Acetaminophen 10/325 mg Tablet PER TUBE SCH (04:52)
[2021-11-15] MEDS: Diclofenac 1% 100 GM GEL TP SCH ×3 (04:52→20:44)
[2021-11-15] MEDS: Levothyroxine Sodium 112 MCG TAB PO SCH (04:52)
[2021-11-15] MEDS: Morphine 2 MG/ML VIAL SLOW IVP PRN (05:28)
[2021-11-15 06:23] LABS: Anion Gap 15 mmol/L (10-20); BUN (Urea Nitrogen) 19 mg/dL (9.8-20.1); Calc. Creatinine Clearance 75 mL/min (70-130); Calcium 9.7 mg/dL (7.8-10.44); Carbon Dioxide 22 mmol/L (23-31); Chloride 104 mmol/L (98-107); Estimated GFR 89; Glucose 118 mg/dL (83-110); Potassium 4.5 mmol/L (3.5-5.1); Sodium 136 mmol/L (136-145)
[2021-11-15] MEDS: Folic Acid 1 MG TAB PO SCH (09:16)
[2021-11-15] MEDS: Potassium Chloride 20 MEQ TAB PO SCH ×2 (09:17→18:04)
[2021-11-15] MEDS: HYDROcodone/Acetaminophen 7.5/325 mg Tablet PO SCH ×3 (09:17→20:43)
[2021-11-15] MEDS: Lidocaine 5% Patch TD SCH (09:18)
[2021-11-15] MEDS: Oxybutynin ER 5 MG TAB PO SCH (09:18)
[2021-11-15] MEDS: Enoxaparin Sodium 40 MG/0.4 ML SYRINGE SC SCH (20:43)
[2021-11-15] MEDS: Melatonin 3 MG TAB PO SCH (20:43)
[2021-11-15] MEDS: clonazePAM 0.5 MG TAB PO SCH (20:43)
[2021-11-15] MEDS: Transdermal Patch Removal TOP SCH (20:44)
[2021-11-16] MEDS: HYDROcodone/Acetaminophen 10/325 mg Tablet PER TUBE SCH (04:02)
[2021-11-16] MEDS: Diclofenac 1% 100 GM GEL TP SCH ×2 (05:21→14:01)
[2021-11-16] MEDS: Levothyroxine Sodium 112 MCG TAB PO SCH (05:22)
[2021-11-16 05:27] LABS: Anion Gap 16 mmol/L (10-20); BUN (Urea Nitrogen) 24 mg/dL (9.8-20.1); Calc. Creatinine Clearance 73 mL/min (70-130); Calcium 9.6 mg/dL (7.8-10.44); Carbon Dioxide 20 mmol/L (23-31); Chloride 105 mmol/L (98-107); Estimated GFR 88; Glucose 119 mg/dL (83-110); Potassium 4.9 mmol/L (3.5-5.1); Sodium 136 mmol/L (136-145)
[2021-11-16] MEDS: Potassium Chloride 20 MEQ TAB PO SCH (08:42)
[2021-11-16] MEDS: Folic Acid 1 MG TAB PO SCH (08:43)
[2021-11-16] MEDS: HYDROcodone/Acetaminophen 7.5/325 mg Tablet PO SCH (08:43)
[2021-11-16] MEDS: Oxybutynin ER 5 MG TAB PO SCH (08:44)
[2021-11-16] MEDS: Lidocaine 5% Patch TD SCH (08:45)
[2021-11-16] MEDS ORDERED: oxyCODONE 5 MG TAB PO PRN (11:23)
[2021-11-16 12:12] VITALS: BP 130/69; TEMP 98.2
[2021-11-16 12:39] LABS: SARS-CoV-2 NAA Rapid Test Not Detected (NotDetected)
[2021-11-16] MEDS ORDERED: fentaNYL 50 mcg/hour Patch TD SCH (12:45)
== END 2021-11-16 14:33 | DRG 543 ==
LOC: MSONC 16:27 → INTOOBSV 16:27 → OBSVTOIN 10-29 16:29
PROVIDERS: ADMIT Family Medicine; ATTEND Family Medicine
PROC: 3E0T3BZ Introduction of Anesthetic Agent into Peripheral Nerves and Plexi, Percutaneous Approach (ICD-10-PCS; principal; 2021-11-02)
DX: M80.08XA Age-related osteoporosis with current pathological fracture, vertebra(e), initial encounter for fracture (principal); N17.9 Acute kidney failure, unspecified; F05 Delirium due to known physiological condition; N30.01 Acute cystitis with hematuria; S76.211A Strain of adductor muscle, fascia and tendon of right thigh, initial encounter; G20 Parkinson's disease; Z20.822 Contact with and (suspected) exposure to COVID-19; R29.6 Repeated falls; H91.90 Unspecified hearing loss, unspecified ear; E78.5 Hyperlipidemia, unspecified; E03.9 Hypothyroidism, unspecified; G43.909 Migraine, unspecified, not intractable, without status migrainosus; I10 Essential (primary) hypertension; I48.91 Unspecified atrial fibrillation; I25.10 Atherosclerotic heart disease of native coronary artery without angina pectoris; R74.01 Elevation of levels of liver transaminase levels; N32.81 Overactive bladder; G47.00 Insomnia, unspecified; B96.20 Unspecified Escherichia coli [E. coli] as the cause of diseases classified elsewhere; E87.6 Hypokalemia; W18.30XA Fall on same level, unspecified, initial encounter; Y92.009 Unspecified place in unspecified non-institutional (private) residence as the place of occurrence of the external cause; Z93.1 Gastrostomy status; Z88.2 Allergy status to sulfonamides; Z91.81 History of falling; Z98.890 Other specified postprocedural states; Z98.42 Cataract extraction status, left eye; Z98.41 Cataract extraction status, right eye; Z90.89 Acquired absence of other organs; Z79.899 Other long term (current) drug therapy; Z79.890 Hormone replacement therapy; Z88.1 Allergy status to other antibiotic agents; Z88.8 Allergy status to other drugs, medicaments and biological substances; Z91.013 Allergy to seafood; Z83.3 Family history of diabetes mellitus; Z82.49 Family history of ischemic heart disease and other diseases of the circulatory system
CPT/HCPCS: 36415; 71045; 71046; 72131; 74177; 76705; 78306; 80048; 80053; 80074; 80076; 81001; 82607; 82747; 83540; 83550; 83735; 83880; 85014; 85025; 85379; 87077; 87086; 87186; 93970; 96372; 96374; 96376; 97139; A9503; G0378; G0379; J0360; J0696; J1650; J1885; J2001; J2270; J2405; J2795; J2930; J3010; J3360; J3490; J7050; J7509; Q9967; U0002

== ENCOUNTER 2023-02-19 01:36 | Emergency (ER) | payer MEDICARE ==
[2023-02-19 02:16] LABS: #Eosinphils 0.1 thou/uL (0.0-0.7); #Monocytes 0.5 thou/uL (0.11-0.59); #Neutrophils 6.2 thou/uL (1.40-6.50); %Basophils 0.3 % (0.0-1.0); %Eosinophils 1.4 % (0.0-10.0); %Lymphocytes 25.5 % (21.0-51.0); %Monocytes 5.5 % (0.0-10.0); Hematocrit 34.1 % (36.0-47.0); Hemoglobin 11.5 g/dL (12.0-16.0); Mean Corpuscular HGB CONC 33.7 g/dL (32.0-36.0); Mean Corpuscular Hemoglobin 34.1 pg (27.0-31.0); Mean Corpuscular Volume 101.2 fl (78.0-98.0); Mean Platelet Volume 10.3 fL (7.4-10.4); Platelet Count 183 10x3/uL (130-400); RBC Distribution Width 12.7 % (11.5-14.5); Red Blood Cell (RBC) Count 3.37 mill/uL (4.20-5.40); White Blood Cell (WBC) Count 9.2 10x3/uL (4.8-10.8)
[2023-02-19 02:45] LABS: ALT (SGPT) Less than 7 U/L (8-55); AST (SGOT) 18 U/L (5-34); Albumin 4.4 g/dL (3.4-4.8); Alkaline Phosphatase 107 U/L (40-110); Anion Gap 18 mmol/L (10-20); BUN (Urea Nitrogen) 29 mg/dL (9.8-20.1); Bilirubin, Total 0.4 mg/dL (0.2-1.2); Calc. Creatinine Clearance 0 mL/min (70-130); Calcium 9.6 mg/dL (7.8-10.44); Carbon Dioxide 24 mmol/L (23-31); Chloride 104 mmol/L (98-107); Estimated GFR 53; Globulin 2.2 g/dL (2.4-3.5); Glucose 98 mg/dL (83-110); Lipase 25 U/L (8-78); Potassium 4.6 mmol/L (3.5-5.1); Protein, Total 6.6 g/dL (5.8-8.1); Sodium 141 mmol/L (136-145)
[2023-02-19 02:48] LABS: Troponin I Less than 0.010 ng/mL (< 0.028)
[2023-02-19] MEDS ORDERED: Acetaminophen 500 MG TAB ONE (05:06)
[2023-02-19] MEDS ORDERED: Iopamidol 370 76% 100 ML VIAL ONE (13:38)
== END 2023-02-19 07:10 | disposition home or self-care (01) ==
LOC: ERS 01:36
DX: M79.10 Myalgia, unspecified site (principal)
CPT/HCPCS: 36415; 70450; 71260; 72125; 74177; 80053; 83690; 84484; 85025; Q9967

== ENCOUNTER 2023-04-04 12:14 | Outpatient (CLI) | payer MEDICARE | END 2023-04-04 12:15 | disposition home or self-care (01) | LOC: BICULT 12:14 | PROVIDERS: ATTEND Specialist | DX: M79.89 Other specified soft tissue disorders (principal) | CPT/HCPCS: 93970 ==

== ENCOUNTER 2023-04-11 15:06 | Outpatient (CLI) | payer MEDICARE | END 2023-04-11 15:07 | disposition home or self-care (01) | LOC: ULT 15:06 | PROVIDERS: ATTEND Internal Medicine | DX: R74.8 Abnormal levels of other serum enzymes (principal) | CPT/HCPCS: 76705 ==